=== PATIENT | male | born 1985 | race Caucasian/White ===

== ENCOUNTER 2019-10-14 19:20 | Emergency (ER) | payer OTHER, SELFPAY ==
[2019-10-14 19:59] VITALS: BP 135/87; PULSE 93; RESP 17; TEMP 36.8; O2SAT 98; BMI 37.9
[2019-10-14 20:44] VITALS: BP 119/78; PULSE 79; RESP 16; TEMP 36.9; O2SAT 98
--- NOTE | 2019-10-14 20:58 | W.ED.EYEPROB ---
HPI - Eye Problem General: Chief complaint: Eye Problems Stated complaint: left eye injury Time Seen by Provider: 10/14/19 20:30 History of Present Illness: HPI Narrative: Patient is a 33-year-old male who comes in with left eye pain. Patient had grease pop into his left. He is now complaining of vision in his left eye. He rinsed it while at home under cold water. Denies any drainage from his eye. He rates the eye discomfort about 3-4 out of 10. States his blurry vision has improved. Associated symptoms: Denies fever(s), headache(s), nausea, neck pain or vomiting Review of Systems Const: Denies: fever, chills or fatigue Eyes: Denies: change in vision or eye discomfort ENMT: Denies: throat pain, painful swallowing, nasal discharge or nasal congestion Card: Denies: chest pain, palpitations, edema, swelling of feet/ankles, shortness of breath on exertion or shortness of breath when lying down Resp: Denies: shortness of breath, productive cough or non-productive cough GI: Denies: abdominal pain, nausea, vomiting, diarrhea, constipation or blood in stool : Denies: flank pain, difficulty urinating, painful urination or blood in urine Musc: Denies: neck pain, back pain or extremity swelling Skin/Breast: Denies: rash or new lesion Neuro: Denies: headache, numbness in extremities or weakness in extremities PFSH ED PFSH: Social History Smoking and tobacco status: current every day smoker Physical Exam Const: COMMON NORMALS: oriented x3 HENMT: COMMON NORMALS: normocephalic HEAD & SCALP: normocephalic MOUTH: oral and palatal mucosa normal THROAT: posterior oropharynx normal and uvula midline Eye: COMMON NORMALS: PERRL and EOMs intact bilaterally EYELID: eyelids normal CONJUNCTIVA: Yes conjunctiva abnormal (mild redness on medial aspect of eye) positive left PUPIL: Yes PERRL SLIT LAMP EXAM: Yes slit lamp exam performed with fluorescein OTHER: Slit lamp exam was normal and showed no ulcerations. Neck/C-Spine: COMMON NORMALS: supple GENERAL: Yes normal visual inspection Resp: COMMON NORMALS: normal respiratory effort, no retractions, no use of accessory muscles and clear to auscultation bilaterally AUSCULTATION: clear to auscultation bilaterally Cardio: COMMON NORMALS: regular rate, regular rhythm, S1 normal heart sound, S2 normal heart sound, no gallops, no clicks, no murmurs and peripheral pulses 2+ throughout RATE: regular rate RHYTHM: regular rhythm HEART SOUNDS: S1 normal and S2 normal PERIPHERAL PULSES: pulses 2+ throughout GI: COMMON NORMALS: normal to inspection, nondistended, normoactive bowel sounds, soft to palpation, non-tender and no masses PALPATION: Yes soft : COMMON NORMALS: Yes no CVA tenderness BLADDER/KIDNEY EXAM: Yes no CVA tenderness Back/Pelvis: COMMON NORMALS: no CVA tenderness Neuro: COMMON NORMALS: oriented x3 and moves all extremities Course ED course: Stressed with the patient the importance of seeing an eye doctor within the next 24-48 hours. Told patient to call her doctor in the morning and set up an appointment. Patient agreed and understood plan. Vital Signs: Vital signs: Vital Signs Temperature 98.4 F 10/14/19 22:21 Pulse Rate 73 10/14/19 22:21 Respiratory Rate 18 10/14/19 22:21 Blood Pressure 121/81 10/14/19 22:21 Pulse Oximetry 97 10/14/19 22:21 Discharge Plan Discharge Patient Disposition: Home, Self-Care Clinical Impression: Superficial eye injury Qualifiers: Encounter type: initial encounter Laterality: left Qualified Code(s): S05.8X2A - Other injuries of left eye and orbit, initial encounter Condition: Stable Prescriptions: New erythromycin with ethanol 2 % solution 1 applic TOPICAL BID Qty: 60 RF: 0 No Action No Known Home Medications RF: 0 Discharge Orders: Discharge Order (Routine); Ordered 10/14/19 Ordered By: Jaime Ledesma Discharge Diet: Regular Discharge Activity: Resume usual activity Patient Instructions: Erythromycin (Into the eye), Eye Foreign Body (ED) Activity Restrictions/Additional Instructions: Eye doctor tomorrow morning to set up an appointment LILLI. Return to the ED if I does not get better and your unable to get into an eye doctor in the next 48 hours. He is in drops twice a day as prescribed. He can take ibuprofen or Tylenol for any pain. Discharge Date/Time: 10/14/19 22:22 Coding Level of Care Code ED Safety And Security Manager for Angely Fwlex Exam Comprehensive
[2019-10-14] MEDS: fluorescein 1 mg Strip EYE-LEFT (21:11)
[2019-10-14] MEDS: tetanus-dipt-pertussis 0.5 mL SDV IM (22:05)
[2019-10-14 22:21] VITALS: BP 121/81; PULSE 73; RESP 18; TEMP 36.9; O2SAT 97
== END 2019-10-14 22:22 | disposition home or self-care (01) ==
PROVIDERS: Emergency Provider Physician Assistant
DX: S05.92XA Unspecified injury of left eye and orbit, initial encounter (principal); X58.XXXA Exposure to other specified factors, initial encounter; F17.200 Nicotine dependence, unspecified, uncomplicated
CPT/HCPCS: 90471; 90715; 99281; 99283

== ENCOUNTER → 2019-12-28 11:36 | Outpatient (BNVA) | payer SELFPAY | PROVIDERS: Visit Provider Nurse Practitioner Family | DX: R05 Cough (principal) | CPT/HCPCS: 71046 ==

== ENCOUNTER 2020-01-09 21:29 | Emergency (ER) | payer SELFPAY ==
[2020-01-09 22:25] VITALS: BP 148/80; PULSE 95; RESP 18; TEMP 36.6; O2SAT 98; BMI 42.5
--- NOTE | 2020-01-10 00:14 | ED_ITS ---
HPI - General Adult General: Chief complaint: General Medical Stated complaint: hot flashes, fever, dizzy Time Seen by Provider: 01/10/20 00:14 Source: patient Mode of arrival: ambulatory Limitations: no limitations History of Present Illness: HPI narrative: 34-year-old male comes in today with fever, dizziness, nausea, and diarrhea. Patient was started on amoxicillin 3 days ago and has been having increasing difficulty with controlling bowel movements. Patient reports that he is also had some nausea and vomiting along with a headache. Patient was started on antibiotics 3 days ago for probable ear infection. Patient reports no chronic medical history. Patient appears mildly unwell. Associated symptoms: Reports headache(s), malaise, nausea and vomiting Review of Systems General: Reports: 10 or more systems reviewed and unremarkable except in HPI and below Const: Reports: malaise GI: Reports: nausea and vomiting Neuro: Reports: headache(s) PFS ED PFSH: Social History Smoking and tobacco status: current every day smoker Physical Exam Const: COMMON NORMALS: no acute distress and patient oriented x3 GENERAL APPEARANCE: cooperative HENMT: COMMON NORMALS: normocephalic, TM's normal bilaterally and Normal external nose present HEAD & SCALP: normal to inspection and normocephalic NOSE: Normal external nose present TYMPANIC MEMBRANE: TM's normal bilaterally MOUTH: Normal oral and palatal mucosa present THROAT: posterior oropharynx normal Eye: GENERAL EYE: appearance normal, both eyes and all related structures Neck/C-Spine: COMMON NORMALS: full ROM Lymph: LYMPHATIC: no lymphadenopathy noted Chest: COMMONS NORMALS: normal inspection of the chest Resp: COMMON NORMALS: normal respiratory effort EFFORT & INSPECTION: Yes able to speak in complete sentences Cardio: COMMON NORMALS: regular rate and regular rhythm RATE: regular rate RHYTHM: regular rhythm GI: COMMON NORMALS: non-tender : COMMON NORMALS: Yes no CVA tenderness BLADDER/KIDNEY EXAM: Yes no CVA tenderness Back/Pelvis: COMMON NORMALS: no CVA tenderness and thoracic and lumbar spine normal to inspection Extremity: COMMON NORMALS: normal to inspection Neuro: COMMON NORMALS: patient oriented x3 and moves all extremities Psych: COMMON NORMALS: mental status grossly normal and cooperative Skin: COMMON NORMALS: no rashes or lesions noted GENERAL SKIN EXAM: no rashes or lesions noted Course Vital Signs: Vital signs: Vital Signs Temperature 97.8 F 01/09/20 22:25 Pulse Rate 95 01/09/20 22:25 Respiratory Rate 18 01/09/20 22:25 Blood Pressure 148/80 01/09/20 22:25 Pulse Oximetry 98 01/09/20 22:25 MDM - General Adult MDM Narrative: Medical decision making narrative: Patient comes in today for complaints of nausea, vomiting, diarrhea, and dizziness. Patient reports that started with dizziness and nausea about 5 days ago. Patient was recommended to take meclizine twice a day until it resolved. Patient had continued complaints and was seen at urgent care who thought he probably had an ear infection and was started on amoxicillin 875. Patient reports since starting the amoxicillin he has had more nausea, vomiting, and diarrhea. Exam notes normal vital signs. Respirations are even lungs are clear to auscultation. Posterior pharynx has some mild clear drainage. Abdomen soft nontender. Patient has no focal neural deficits. Bowel sounds are present throughout. No edema is in the noted extremities. Differential diagnosis includes vestibular neuritis, sinusitis, brain mass or tumor, electrolyte imbalance, cardiac arrhythmia. EKG was normal. Laboratory values were normal except for some mild leukocytosis at 11.4. CT scan of the head was negative for any mass or intracranial bleeding or sinusitis. Reviewed exam with patient believe patient probably has some vestibular neuronitis which should resolve on its own with minimal intervention. Recommend the patient stop the amoxicillin as this may be causing his gastrointestinal discomfort. Recommend patient take dimenhydrinate as is shown to be more effective than other medications and assisting with the dizziness that goes along with labyrinthritis. Patient reports understanding and agreed to plan. Lab Data: Labs: Lab Results 01/10/20 01/10/20 Range/Units 00:50 00:50 WBC 11.4 H (4.0-10.0) 10^3/ uL RBC 5.58 H (4.1-5.3) 10^6/u L Hgb 16.2 (11.7-16.6) g/dL Hct 49.3 (42.0-52.0) % MCV 88.4 (80-94) fL MCH 29.0 (28.0-34.0) pg MCHC 32.9 (30.0-36.0) g/dL RDW 13.7 (12.1-15.1) % Plt Count 320 (130-400) 10^3/c mm MPV 8.8 (7.4-10.4) fL Neut % (Auto) 43.7 % Lymph % (Auto) 43.5 % Christian % (Auto) 6.5 % Eos % (Auto) 5.4 % Baso % (Auto) 0.5 % Neut # (Auto) 5.0 (1.8-7.7) 10^3/u L Lymph # (Auto) 5.0 H (0.8-4.8) 10^3/u L Christian # (Auto) 0.7 (0.2-0.9) 10^3/u L Eos # (Auto) 0.6 (0.0-0.8) 10^3/u L Baso # (Auto) 0.1 (0.0-0.1) 10^3/u L Nucleated RBC % (a uto) 0 % Nucleated RBCs # 0.0 /100WBC Sodium 137 (136-145) mmol/L Potassium 4.0 (3.5-5.1) mmol/L Chloride 101 (98-107) mmol/L Carbon Dioxide 24 (22-29) mmol/L Anion Gap 16.0 (5-19) BUN 13 (6-20) mg/dL Creatinine 0.8 (0.7-1.2) mg/dL GFR Calculation 110.0 (90-130) mL/min Glucose 107 (65-115) mg/dL Calculated Osmolal ity 281 L (285-295) mOsm/k g Calcium 9.2 (8.5-10.5) mg/dL Total Bilirubin 0.3 (0.15-1.2) mg/dL AST 30 (0-40) U/L ALT 28 (0-41) U/L Alkaline Phosphata se 74 (40-130) IU/L Total Protein 7.0 (6.6-8.7) g/dL Albumin 4.4 (3.5-5.2) g/dL Globulin 2.6 (1.3-4.6) g/dL Lipase 22 (13-60) U/L EKG Data^: EKG 1: Attestation: I personally reviewed and interpreted this EKG as follows: (0059, sinus rhythm, regular 68 bpm, no ectopy, no ST elevation.) Computer generated interpretation: Head CT 01/10/20 00:23 IMPRESSION: 1. No acute intracranial hemorrhage or mass effect. 2. No definite acute infarct by CT, see above. 3. Other findings discussed above. Radiation Dose CTDIVOL = (mGy): DLP = 852.67 (mGy-cm) Discharge Plan Discharge Patient Disposition: Home, Self-Care Clinical Impression: Vestibular dizziness Condition: Stable Prescriptions: New dimenhydrinate 50 mg tablet 50 mg PO Q4H PRN (Reason: dizziness or vertigo) Qty: 30 RF: 0 No Action meclizine [Medi-Meclizine] 25 mg tablet 25 mg PO BID PRN (Reason: dizziness) RF: 0 amoxicillin 875 mg tablet 875 mg PO BID 10 Days Qty: 20 RF: 0 ondansetron 4 mg tablet,disintegrating 4 mg PO Q8H PRN (Reason: nausea and vomiting) Qty: 14 RF: 0 amoxicillin 875 mg tablet 875 mg PO BID RF: 0 Discharge Orders: Discharge Order (Routine); Ordered 01/10/20 Ordered By: Henry Rhodes Discharge Diet: Usual diet Discharge Activity: Increase activity as tolerated Patient Instructions: Dizziness (ED) Activity Restrictions/Additional Instructions: Stop the antibiotic and meclizine. Drink plenty of water. Take dimenhydrinate 50 mg every 4-6 hours as needed for dizziness or nausea. You may use the ondansetron as needed for nausea. The dizziness will continue to improve over the next 1 to 2 weeks. If symptoms persist follow-up with primary care who may recommend you see a high school learning support teacher. Return to the ER for high fever or worsening symptoms. Coding Level of Care Code ED Electrical Maintenance Technician for Angely Fwd Exam Comprehensive
--- NOTE | 2020-01-10 00:23 | CTR_ITS ---
PROCEDURE INFORMATION: Exam: CT Head Without Contrast Exam date and time: 01/10/2020 12:25 AM Age: 34 years old Clinical indication: Pain; Dizziness; Headache; Additional info: Dizziness, headache TECHNIQUE: Imaging protocol: Computed tomography of the head without contrast. Radiation optimization: All CT scans at this facility use at least one of these dose optimization techniques: automated exposure control; mA and/or kV adjustment per patient size (includes targeted exams where dose is matched to clinical indication); or iterative reconstruction. COMPARISON: No relevant prior studies available. RADIATION DOSE METRICS: Total DLP: 852.67 mGy-cm FINDINGS: Brain: No acute intracranial hemorrhage or mass effect. No definite acute infarct by CT. MRI could be more sensitive/specific for detection, as clinically directed. Ventricles: Ventricle size is normal for age. Bones/joints: No definite acute skull fracture. Sinuses: Included paranasal sinuses are essentially clear. Mastoid air cells: No significant acute finding. CT/CT head wo con* [id number] IMPRESSION: 1. No acute intracranial hemorrhage or mass effect. 2. No definite acute infarct by CT, see above. 3. Other findings discussed above. Radiation Dose CTDIVOL = (mGy): DLP = 852.67 (mGy-cm)
--- NOTE | 2020-01-10 00:23 | ECG_ITS ---
Measurements Intervals [place] Rate: 68 P: 45 MI: 167 QRS: 24 QRSD: 107 T: 20 QT: 370 QTc: 394 SINUS RHYTHM No previous ECG available for comparison Electronically Signed On 01-10-2020 13:05:08 CDT by Marcos Elizondo M.D. [id number]
[2020-01-10 00:35] VITALS: BP 138/74; PULSE 88; RESP 16; O2SAT 98
[2020-01-10 01:00] LABS: Basophils # 0.1 10^3/uL (0.0-0.1); Basophils % 0.5 %; Eosinophils # 0.6 10^3/uL (0.0-0.8); Eosinophils % 5.4 %; Hematocrit 49.3 % (42.0-52.0); Hemoglobin 16.2 g/dL (11.7-16.6); Lymphocytes % 43.5 %; Mean Corpuscular HGB Conc 32.9 g/dL (30.0-36.0); Mean Corpuscular Volume 88.4 fL (80-94); Mean Platelet Volume 8.8 fL (7.4-10.4); Monocytes # 0.7 10^3/uL (0.2-0.9); Monocytes % 6.5 %; Neutrophils % 43.7 %; Nucleated Red Blood Cells % 0 %; Platelet Count 320 10^3/cmm (130-400); Red Blood Count 5.58 10^6/uL (4.1-5.3); Red Cell Distribution Width 13.7 % (12.1-15.1); White Blood Count 11.4 10^3/uL (4.0-10.0)
[2020-01-10] MEDS: metoclopramide 5 mg/mL SDV 2 mL 10 MG IVP (01:03)
[2020-01-10] MEDS: sodium chloride 0.9% 500 ML 999 ML IV (01:03)
[2020-01-10 01:18] LABS: Alanine Aminotransferase 28 U/L (0-41); Albumin Level 4.4 g/dL (3.5-5.2); Alkaline Phosphatase 74 IU/L (40-130); Blood Urea Nitrogen 13 mg/dL (6-20); Calcium 9.2 mg/dL (8.5-10.5); Carbon Dioxide 24 mmol/L (22-29); Chloride 101 mmol/L (98-107); Globulin 2.6 g/dL (1.3-4.6); Glucose 107 mg/dL (65-115); Lipase 22 U/L (13-60); Osmolality Calculated 281 mOsm/kg (285-295); Sodium 137 mmol/L (136-145); Total Bilirubin 0.3 mg/dL (0.15-1.2)
[2020-01-10 01:19] LABS: Aspartate Amino Transferase 30 U/L (0-40)
[2020-01-10] MEDS: diphenoxylate/atropine Tablet 1 TAB PO (02:16)
== END 2020-01-10 02:30 | disposition home or self-care (01) ==
PROVIDERS: Emergency Provider Nurse Practitioner Family
DX: R42 Dizziness and giddiness (principal); F17.210 Nicotine dependence, cigarettes, uncomplicated
CPT/HCPCS: 12345; 70450; 80053; 83690; 85025; 93005; 96374; 99283; J2765; J7040

== ENCOUNTER → 2020-02-22 13:33 | Outpatient (BNVA) | payer SELFPAY | PROVIDERS: Visit Provider Nurse Practitioner | DX: K52.9 Noninfective gastroenteritis and colitis, unspecified (principal); R11.2 Nausea with vomiting, unspecified | CPT/HCPCS: 81000 ==

== ENCOUNTER 2020-02-25 08:25 | Emergency (ER) | payer SELFPAY ==
[2020-02-25] VITALS (7 sets, daily range): BP systolic 130–144; BP diastolic 80–94; PULSE 75–98; RESP 16–18; TEMP 36.8; O2SAT 95–99; BMI 40.4
--- NOTE | 2020-02-25 08:35 | ECG_ITS ---
[facility] Test Date: 2020-02-25 Pat Name: Henry Arteaga Department: Room: Gender: Male Topographical Surveyor: : 1985 Requested By: Jj Gonzalez Order Number: [id number] Trinidad MD: Erika Umaña M.D. Measurements Intervals [place] Rate: 85 P: 55 TN: 154 QRS: 32 QRSD: 98 T: 22 QT: 357 QTc: 425 Interpretive Statements SINUS RHYTHM Compared to ECG 01/10/2020 00:59:16 No significant changes Electronically Signed On 02-25-2020 19:32:46 CDT by Erika Umaña M.D. [id number]
--- NOTE | 2020-02-25 08:35 | XRR_ITS ---
PROCEDURE INFORMATION: Exam: XR Chest, 1 View Exam date and time: 02/25/2020 8:51 AM Age: 34 years old Clinical indication: Cough and dyspnea; Patient HX: Chest pain, blacked out earlier; Additional info: Dyspnea/cough TECHNIQUE: Imaging protocol: XR of the chest Views: 1 view. COMPARISON: CR XR chest 2V* [id number] 12/28/2019 11:52 AM FINDINGS: Lungs: Unremarkable. No consolidation. Pleural space: Unremarkable. No pleural effusion. No pneumothorax. Heart/Mediastinum: Unremarkable. No cardiomegaly. Bones/joints: There is a mild thoracic dextroscoliosis. XR/XR chest 1V portable [id number] IMPRESSION: No acute findings.
--- NOTE | 2020-02-25 08:35 | ED_ITS ---
HPI - Syncope General: Chief Complaint: Syncope Stated Complaint: SYNCOPAL EPISODE Time Seen by Provider: 02/25/20 08:26 History of Present Illness: HPI narrative: 34-year-old male presents after syncopal episode while at work. He had some nausea and vomiting kind of a GI upset thing 2 days ago he was seen at the urgent care clinic and started on antiemetic promethazine. 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 Occurred while he was standing he denies any GI blood loss with any the nausea vomiting he has had recently. When he arrived here he had been given some fluid by EMS he was awake and alert. MD complaint: loss of consciousness, felt faint and collapsed Prodromal symptoms: lightheaded and diaphoresis Witnessed: Yes - by Bystander Context: standing up and new medication (Promethazine) Injuries sustained associated with event: none Associated symptoms: Reports lightheadedness, nausea, vertigo and weakness; Deny fever(s) History: other (Recent gastroenteritis treatment with promethazine) Treatments prior to arrival: IV fluids Review of Systems Const: Denies: fever(s), chills, body aches, change in appetite, fatigue or malaise ENMT: Denies: throat pain, ear or mastoid pain, nasal discharge or nasal congestion Card: Reports: lightheadedness Resp: Denies: dyspnea, productive cough or non-productive cough GI: Reports: nausea : Denies: flank pain, dysuria, urinary frequency or urinary urgency Skin/Breast: Denies: rash or pruritus Neuro: Reports: vertigo PFSH ED PFSH: Medical History (Updated 02/25/20 @ 11:38 by Jj Wheatley DO) No significant past medical history Surgical History (Updated 02/25/20 @ 11:38 by Jj Wheatley DO) No significant past surgical history Social History Smoking and tobacco status: current every day smoker Physical Exam Const: COMMON NORMALS: no acute distress GENERAL APPEARANCE: cooperative and comfortable ORIENTATION/CONSCIOUSNESS: Yes awake, Yes oriented to person, Yes oriented to place and Yes oriented to time HENMT: COMMON NORMALS: normocephalic, atraumatic, hearing grossly normal bilaterally, external ears normal, EAC's normal, TM's normal bilaterally, Normal nasal mucous membranes and turbinates present, moist oral mucous membranes and oropharynx normal HEAD & SCALP: normocephalic and atraumatic NOSE: Normal nasal mucous membranes and turbinates present EXTERNAL EAR: Yes external ears normal EXTERNAL AUDITORY CANAL: EAC's normal TYMPANIC MEMBRANE: TM's normal bilaterally Eye: COMMON NORMALS: Equal, round and reactive pupils present, EOMs intact bilaterally, conjunctivae normal and no scleral icterus CONJUNCTIVA: Yes conjunctivae normal PUPIL: Yes Equal, round and reactive pupils present Neck/C-Spine: COMMON NORMALS: full ROM, no lymphadenopathy, supple and no JVD Lymph: LYMPHATIC: no lymphadenopathy noted and no lymphedema noted Resp: COMMON NORMALS: normal respiratory effort, No retractions, No use of accessory muscles and clear to auscultation bilaterally AUSCULTATION: clear to auscultation bilaterally Cardio: COMMON NORMALS: no JVD, regular rate, regular rhythm and No murmurs present (Cardio) RATE: regular rate RHYTHM: regular rhythm GI: COMMON NORMALS: Soft to palpation and No hepatosplenomegaly present AUSCULTATION: Yes normoactive bowel sounds PALPATION: Yes Soft to palpation, No Tenderness to palpation present (GI), No Guarding due to palpation present (GI) and Yes No hepatosplenomegaly present Extremity: COMMON NORMALS: normal to inspection, capillary refill normal, no clubbing, cyanosis or edema, no calf tenderness and no pedal edema Neuro: SENSORIUM/ORIENTATION: Yes oriented to person, Yes oriented to place and Yes oriented to time Skin: COMMON NORMALS: no rashes or lesions noted GENERAL SKIN EXAM: no rashes or lesions noted Course Vital Signs: Vital signs: Vital Signs Temperature 98.3 F 02/25/20 08:26 Pulse Rate 78 02/25/20 10:35 Respiratory Rate 18 02/25/20 10:35 Blood Pressure 134/88 02/25/20 10:35 Pulse Oximetry 97 02/25/20 10:35 MDM - Syncope MDM Narrative: Medical decision making narrative: Improved after IV fluids. Discharge home wrote note for 2 days off recheck with his primary care doctor any worsening or change symptoms return. Lab Data: Attestation: I reviewed the patient's lab results. Labs: Lab Results 02/25/20 02/25/20 02/25/20 Range/Units 08:15 08:15 09:18 WBC 11.3 H (4.0-10.0) 10^3/ uL RBC 5.68 H (4.1-5.3) 10^6/u L Hgb 16.7 H (11.7-16.6) g/dL Hct 50.3 (42.0-52.0) % MCV 88.6 (80-94) fL MCH 29.4 (28.0-34.0) pg MCHC 33.2 (30.0-36.0) g/dL RDW 13.4 (12.1-15.1) % Plt Count 342 (130-400) 10^3/c mm MPV 9.3 (7.4-10.4) fL Neut % (Auto) 59.6 % Lymph % (Auto) 30.8 % Valencia % (Auto) 4.5 % Eos % (Auto) 4.3 % Baso % (Auto) 0.4 % Neut # (Auto) 6.7 (1.8-7.7) 10^3/u L Lymph # (Auto) 3.5 (0.8-4.8) 10^3/u L Valencia # (Auto) 0.5 (0.2-0.9) 10^3/u L Eos # (Auto) 0.5 (0.0-0.8) 10^3/u L Baso # (Auto) 0.0 (0.0-0.1) 10^3/u L Nucleated RBC % (a uto) 0 % Nucleated RBCs # 0.0 /100WBC Sodium 139 (136-145) mmol/L Potassium 4.0 (3.5-5.1) mmol/L Chloride 101 (98-107) mmol/L Carbon Dioxide 26 (22-29) mmol/L Anion Gap 16.0 (5-19) BUN 10 (6-20) mg/dL Creatinine 0.8 (0.7-1.2) mg/dL GFR Calculation 110.0 (90-130) mL/min Glucose 109 (65-115) mg/dL Calculated Osmolal ity 285 (285-295) mOsm/k g Calcium 9.6 (8.5-10.5) mg/dL Total Bilirubin 0.4 (0.15-1.2) mg/dL AST 27 (0-40) U/L ALT 32 (0-41) U/L Alkaline Phosphata se 73 (40-130) IU/L Creatine Kinase 139 (39-308) U/L Total Protein 7.1 (6.6-8.7) g/dL Albumin 4.3 (3.5-5.2) g/dL Globulin 2.8 (1.3-4.6) g/dL Lipase 22 (13-60) U/L Urine Color (Yellow) Urine Appearance (CLEAR) Urine pH (5-7) Ur Specific Gravit y (1.005-1.030) Urine Protein (Negative) Urine Glucose (UA) (Normal) Urine Ketones (Negative) Urine Blood (Negative) Urine Nitrate (Negative) Urine Bilirubin (NEGATIVE) Prot Sulfosalicyli c Acd (Negative) Urine Urobilinogen (Negative) mg/dL Ur Leukocyte Debbi ase (Negative) Serum Ketones Negative (Negative) 02/25/20 Range/Units 09:35 WBC (4.0-10.0) 10^3/ uL RBC (4.1-5.3) 10^6/u L Hgb (11.7-16.6) g/dL Hct (42.0-52.0) % MCV (80-94) fL MCH (28.0-34.0) pg MCHC (30.0-36.0) g/dL RDW (12.1-15.1) % Plt Count (130-400) 10^3/c mm MPV (7.4-10.4) fL Neut % (Auto) % Lymph % (Auto) % Valencia % (Auto) % Eos % (Auto) % Baso % (Auto) % Neut # (Auto) (1.8-7.7) 10^3/u L Lymph # (Auto) (0.8-4.8) 10^3/u L Valencia # (Auto) (0.2-0.9) 10^3/u L Eos # (Auto) (0.0-0.8) 10^3/u L Baso # (Auto) (0.0-0.1) 10^3/u L Nucleated RBC % (a uto) % Nucleated RBCs # /100WBC Sodium (136-145) mmol/L Potassium (3.5-5.1) mmol/L Chloride (98-107) mmol/L Carbon Dioxide (22-29) mmol/L Anion Gap (5-19) BUN (6-20) mg/dL Creatinine (0.7-1.2) mg/dL GFR Calculation (90-130) mL/min Glucose (65-115) mg/dL Calculated Osmolal ity (285-295) mOsm/k g Calcium (8.5-10.5) mg/dL Total Bilirubin (0.15-1.2) mg/dL AST (0-40) U/L ALT (0-41) U/L Alkaline Phosphata se (40-130) IU/L Creatine Kinase (39-308) U/L Total Protein (6.6-8.7) g/dL Albumin (3.5-5.2) g/dL Globulin (1.3-4.6) g/dL Lipase (13-60) U/L Urine Color Yellow (Yellow) Urine Appearance Clear (CLEAR) Urine pH 8.5 H (5-7) Ur Specific Gravit y 1.015 (1.005-1.030) Urine Protein Neg (Negative) Urine Glucose (UA) Norm (Normal) Urine Ketones Negative (Negative) Urine Blood Neg (Negative) Urine Nitrate Negative (Negative) Urine Bilirubin Neg (NEGATIVE) Prot Sulfosalicyli c Acd Negative (Negative) Urine Urobilinogen Norm (Negative) mg/dL Ur Leukocyte Debbi ase Negative (Negative) Serum Ketones (Negative) Discharge Plan Discharge Patient Disposition: Home, Self-Care Clinical Impression: Syncope due to orthostatic hypotension Condition: Stable Prescriptions: No Action promethazine 12.5 mg tablet 12.5 mg PO TID PRN (Reason: nausea and vomiting) Qty: 20 RF: 0 Tylenol Extra Strength 500 mg Tablet 3,000 mg PO PRN RF: 0 ibuprofen 200 mg Tablet 800 mg PO PRN RF: 0 Excedrin Migraine 250-250-65 mg Tablet See Rx Instructions .ROUTE .COMPLEX RF: 0 Discharge Diet: Advance as tolerated Discharge Activity: Limit activity as instructed Patient Instructions: Syncope (ED) Activity Restrictions/Additional Instructions: Off work today drink plenty of fluids Stand Alone Forms: Work/School Release Coding Level of Care Code ED Community Relations Officer for Angely Sheffield
[2020-02-25] MEDS: sodium chloride 0.9% 1,000 ML 999 ML IV ×2 (09:03→10:42)
[2020-02-25 09:16] LABS: Basophils % 0.4 %; Eosinophils # 0.5 10^3/uL (0.0-0.8); Eosinophils % 4.3 %; Hematocrit 50.3 % (42.0-52.0); Hemoglobin 16.7 g/dL (11.7-16.6); Lymphocytes # 3.5 10^3/uL (0.8-4.8); Lymphocytes % 30.8 %; Mean Corpuscular HGB Conc 33.2 g/dL (30.0-36.0); Mean Corpuscular Hemoglobin 29.4 pg (28.0-34.0); Mean Corpuscular Volume 88.6 fL (80-94); Mean Platelet Volume 9.3 fL (7.4-10.4); Monocytes # 0.5 10^3/uL (0.2-0.9); Monocytes % 4.5 %; Neutrophils # 6.7 10^3/uL (1.8-7.7); Neutrophils % 59.6 %; Nucleated Red Blood Cells % 0 %; Platelet Count 342 10^3/cmm (130-400); Red Blood Count 5.68 10^6/uL (4.1-5.3); Red Cell Distribution Width 13.4 % (12.1-15.1); White Blood Count 11.3 10^3/uL (4.0-10.0)
[2020-02-25 09:22] LABS: Ketone (Acetest) Serum Negative (Negative)
[2020-02-25 10:00] LABS: Alanine Aminotransferase 32 U/L (0-41); Albumin Level 4.3 g/dL (3.5-5.2); Alkaline Phosphatase 73 IU/L (40-130); Aspartate Amino Transferase 27 U/L (0-40); Blood Urea Nitrogen 10 mg/dL (6-20); Calcium 9.6 mg/dL (8.5-10.5); Carbon Dioxide 26 mmol/L (22-29); Chloride 101 mmol/L (98-107); Creatine Phosphokinase 139 U/L (39-308); Globulin 2.8 g/dL (1.3-4.6); Glucose 109 mg/dL (65-115); Lipase 22 U/L (13-60); Osmolality Calculated 285 mOsm/kg (285-295); Sodium 139 mmol/L (136-145); Total Bilirubin 0.4 mg/dL (0.15-1.2); Total Protein 7.1 g/dL (6.6-8.7)
[2020-02-25 10:38] LABS: Add Urine Microscopic? NO
[2020-02-25 10:56] LABS: Bilirubin Urine Neg (NEGATIVE); Blood Urine Neg (Negative); Glucose Urine UA Norm (Normal); Ketones Urine Negative (Negative); Leukocyte Esterase Urine Negative (Negative); Nitrate Urine Negative (Negative); Protein Urine Neg (Negative); Specific Gravity, Urine 1.015 (1.005-1.030); Sulfosalicylic Acid Urine Negative (Negative); Urine Appearance Clear (CLEAR); Urine Color Yellow (Yellow); Urobilinogen Urine Norm (Negative); pH Urine 8.5 (5-7)
== END 2020-02-25 11:53 | disposition home or self-care (01) ==
PROVIDERS: Emergency Provider Family Medicine
DX: I95.1 Orthostatic hypotension (principal); F17.210 Nicotine dependence, cigarettes, uncomplicated
CPT/HCPCS: 12345; 36415; 71045; 80053; 81003; 82009; 82550; 83690; 85025; 93005; 96360; 96361; 99284; J7030

== ENCOUNTER → 2020-03-13 11:16 | Outpatient (BNVA) | payer SELFPAY | PROVIDERS: Visit Provider Family Medicine | DX: K52.9 Noninfective gastroenteritis and colitis, unspecified (principal) | CPT/HCPCS: 87177; 87209; 87493; 87506 ==

== ENCOUNTER 2020-03-24 09:22 | Day surgery (SDC) | payer SELFPAY ==
[2020-03-23 07:58] VITALS: BMI 43.9
--- NOTE | 2020-03-24 10:03 | ANES.PREANE2 ---
Pre-Anesthetic Assessment Pre-Anesthetic Assessment: Height/Weight: Height 1.6 m Weight 112.491 kg Preop Diagnosis: gerd/ gi bleed Proposed Procedure: Operation Date: 03/24/20 11:00 Proposed Procedures p EGD/colon with poss biopsy [id number] R10.13 K52.9(Not Applicable) - Miles Lind MD s Colonoscopy with poss biopsy poss polypectomy(Not Applicable) - Miles Lind MD Familial anesthetic complications: None Last intake: NPO > 8 hrs Social: Social History: Tobacco and No alcohol Exam: Pre-Anes Outpt Exam: alert, oriented x 3, clear to auscultation bilaterally and regular rate & rhythm Airway: Cervical ROM: WNL MP: 3 Dentition: Chipped Pulmonary: Pulmonary: Asthma CV/HEM: CV/HEM: Murmur Comments: PVCs : : None reported Hepatic: Hepatic: None reported GI: GI: GERD Metabolic: Metabolic: None reported Musc/skel: Musc/skel: None reported Neuropsych: Neuropsych: None reported Anesthetic Plan: ASA status: 1 Anesthesia: MAC PFSH Anesthesia PFSH: Medical History Chronic low back pain Chronic migraine Surgical History H/O circumcision Family History Mother Cancer lung Father Cancer lung, colon Other CAD (coronary artery disease) Chronic kidney disease (CKD) Diabetes Denies family history of Anesthesia complication Bleeding disorder Social History Smoking and tobacco status: current every day smoker cigarettes Packs smoked per day: 0.75 Alcohol intake: never Lives independently: Yes Household members: spouse Marital status: Single Current occupational status: employed History of recent travel: Yes ([place]) Out of state: No Data Anesthesia Cardiac Studies: No Data to Display
[2020-03-24] MEDS: sodium chloride 0.9% 1,000 ML 30 ML IV (10:18)
--- NOTE | 2020-03-24 11:16 | W.PM.OPSUD ---
Surgery/Procedure H&P Update DATE OF PROCEDURE: March 24, 2020 DATE H&P PERFORMED: 03/17/20 H&P UPDATE INFORMATION: I have reviewed H&P completed within last 30 days, I have examined patient prior to procedure and No changes to prior documentation PREOP DIAGNOSIS: gerd/ gi bleed PLANNED PROCEDURE: Operation Date: 03/24/20 11:00 Proposed Procedures p EGD/colon with poss biopsy [id number] R10.13 K52.9(Not Applicable) - Miles Lind MD s Colonoscopy with poss biopsy poss polypectomy(Not Applicable) - Miles Lind MD
[2020-03-24 11:42] VITALS: BP 113/67; PULSE 68; RESP 16; TEMP 36.2; O2SAT 98
[2020-03-24 11:54] VITALS: BP 126/63; PULSE 60; RESP 18; O2SAT 99
== END 2020-03-24 12:16 | disposition home or self-care (01) ==
PROVIDERS: PCP Family Medicine; Visit Provider Surgery
PROC: 0DJ08ZZ Inspection of Upper Intestinal Tract, Via Natural or Artificial Opening Endoscopic (ICD-10-PCS; CPT 43235; principal; 2020-03-24 11:00)
PROC: 0DJD8ZZ Inspection of Lower Intestinal Tract, Via Natural or Artificial Opening Endoscopic (ICD-10-PCS; CPT 45378; 2020-03-24 11:00)
DX: K21.9 Gastro-esophageal reflux disease without esophagitis (principal); K52.9 Noninfective gastroenteritis and colitis, unspecified; K57.30 Diverticulosis of large intestine without perforation or abscess without bleeding; K64.8 Other hemorrhoids; J45.909 Unspecified asthma, uncomplicated; F17.210 Nicotine dependence, cigarettes, uncomplicated
CPT/HCPCS: 12345; 43239; 45378; 82274; 83630; 87493; 87506; 88305; J2704; J7030

== ENCOUNTER 2020-04-20 09:33 | Outpatient (CLI) | payer SELFPAY ==
--- NOTE | 2020-04-20 11:00 | US_ITS ---
WS: [id number] ULTRASOUND ABDOMEN LIMITED CLINICAL INFORMATION: chronic abdominal pain COMPARISON: None. FINDINGS: Technically difficult examination due to body habitus. Liver Size: Mild hepatomegaly Craniocaudal length: 16.8 cm. Echogenicity: Coarse Surface nodularity: None. Mass (size and location): None. Bile ducts Intrahepatic ducts: Normal. Common bile duct diameter: 0.4 cm. Gallbladder Normal. Gallstones: None. Gallbladder sludge: None. Gallbladder wall thickening: None. Pericholecystic fluid: None. Sonographic Campa sign: Absent. Pancreas Normal as visualized. Right kidney: Normal. Hydronephrosis: None. Size: 11.7 cm x 4.4 cm x 5.1 cm. Abdominal aorta and IVC Visualized portions are normal. Ascites: None. US/US gall bladder [id number] IMPRESSION: 1. Technically difficult examination due to body habitus. 2. Mild hepatomegaly with diffuse fatty infiltration. 3. Gallbladder is normal. 4. No hydronephrosis in right kidney.
== END 2020-04-20 09:34 | disposition home or self-care (01) ==
LOC: US 09:34
PROVIDERS: PCP Family Medicine; Visit Provider Surgery
DX: R10.9 Unspecified abdominal pain (principal); G89.29 Other chronic pain; R16.0 Hepatomegaly, not elsewhere classified; K76.0 Fatty (change of) liver, not elsewhere classified
CPT/HCPCS: 76705

== ENCOUNTER 2020-05-01 07:34 | Outpatient (CLI) | payer SELFPAY ==
--- NOTE | 2020-05-01 08:00 | NM_ITS ---
WS: [id number] NUCLEAR MEDICINE HIDA SCAN WITH GALLBLADDER EJECTION FRACTION HISTORY: right upper quadrant pain COMPARISON: Gallbladder ultrasound 04/20/2020 TECHNIQUE: The patient was intravenously injected with 8.0 mCi of TC99m Mebrofenin. Immediate imaging over the right upper quadrant was followed by 5 minute image and additional images for a total of 60 minutes. Normal uptake of radiotracer throughout the liver. Activity identified in the gallbladder at 15 minutes and well distended by 60 minutes. Activity in the proximal small bowel was seen by 30 minutes. Good washout of the radiotracer from the liver by 60 minutes. The patient then drank 8 ounces of Ensure Plus. Ejection fraction at 60 minutes was 85%. Normal GB ej ection fraction is 35-75%. Post fatty meal symptoms: None. NM/NM hepatobiliary w phar* [id number] IMPRESSION: 1. Normal HIDA scan. 2. Normal gallbladder ejection fraction.
== END 2020-05-01 07:35 | disposition home or self-care (01) ==
LOC: NM 07:34
PROVIDERS: PCP Family Medicine; Visit Provider Surgery
DX: R10.11 Right upper quadrant pain (principal)
CPT/HCPCS: 78227; A9537

== ENCOUNTER → 2020-05-08 09:46 | Outpatient (BNVA) | payer OTHER, SELFPAY | PROVIDERS: PCP Family Medicine; Visit Provider Internal Medicine | DX: Z11.59 Encounter for screening for other viral diseases (principal) | CPT/HCPCS: 87635 ==

== ENCOUNTER 2020-05-11 08:12 | Outpatient (CLI) | payer SELFPAY ==
--- NOTE | 2020-05-11 14:21 | PFTS_ITS ---
Date of Study:05/11/20 Date of Dictation: MECHANICS: Forced vital capacity (FVC) is normal. Forced expiratory volume in one second (FEV1) is normal. FEV1/FVC is normal. FLOW VOLUME LOOP: Normal. LUNG VOLUMES: Not measured DIFFUSING CAPACITY FOR CARBON MONOXIDE: Not measured INTERPRETATION: The pre-and postbronchodilator spirometry are both normal. However, there is a significant postbronchodilator response consistent with asthma. MTDD
--- NOTE | 2020-05-11 14:56 | PFTS_ITS ---
Date of Study:05/11/20 Date of Dictation: MECHANICS: Forced vital capacity (FVC) is normal. Forced expiratory volume in one second (FEV1) is normal. FEV1/FVC is normal. FLOW VOLUME LOOP: Normal. LUNG VOLUMES: Not measured DIFFUSING CAPACITY FOR CARBON MONOXIDE: Not measured INTERPRETATION: The prebronchodilator spirometry is normal. However, the postbronchodilator spirometry showed a significant postbronchodilator response. Lung volumes and gas exchange were not measured. MTDD
== END 2020-05-11 08:13 | disposition home or self-care (01) ==
LOC: RT 08:13
PROVIDERS: PCP Family Medicine; Visit Provider Family Medicine
DX: R06.2 Wheezing (principal); K82.9 Disease of gallbladder, unspecified
CPT/HCPCS: 87635; 94060; J7611

== ENCOUNTER 2020-05-13 08:05 | Day surgery (SDC) | payer SELFPAY ==
[2020-05-12 12:46] VITALS: BMI 43.7
[2020-05-13] VITALS (10 sets, daily range): BP systolic 122–145; BP diastolic 66–106; PULSE 53–83; RESP 14–20; TEMP 36.2–37.3; O2SAT 94–97
--- NOTE | 2020-05-13 08:52 | W.PM.OPSUD ---
Surgery/Procedure H&P Update DATE OF PROCEDURE: May 13, 2020 DATE H&P PERFORMED: 05/05/20 H&P UPDATE INFORMATION: I have reviewed H&P completed within last 30 days, I have examined patient prior to procedure and No changes to prior documentation PREOP DIAGNOSIS: Chronic cholecystitis PLANNED PROCEDURE: Operation Date: 05/13/20 09:55 Proposed Procedures p Laparoscopic Cholecystectomy 34436 K82.9(Not Applicable) - Miles Lind MD
[2020-05-13] MEDS: sodium chloride 0.9% 1,000 ML 30 ML IV (08:55)
--- NOTE | 2020-05-13 09:14 | ANES.PREANE2 ---
Pre-Anesthetic Assessment Pre-Anesthetic Assessment: Height/Weight: Height 1.6 m Weight 112.037 kg Temp Pulse Resp BP Pulse Ox 98.5 F 83 18 145/95 97 05/13/20 08:34 05/13/20 08:34 05/13/20 08:34 05/13/20 08:34 05/13/20 08:34 Preop Diagnosis: Chronic cholecystitis Proposed Procedure: Operation Date: 05/13/20 09:55 Proposed Procedures p Laparoscopic Cholecystectomy 78240 K82.9(Not Applicable) - Miles Lind MD Familial anesthetic complications: None Was Beta Ishmael taken within 24 hours: N/A Last intake: Intake Last Liquid Date 05/12/20 Last Liquid Time 21:00 Last Solid Date 05/12/20 Last Solid Time 21:00 Social: Social History: Tobacco Exam: Pre-Anes Outpt Exam: alert, oriented x 3, clear to auscultation bilaterally and regular rate & rhythm Airway: Cervical ROM: WNL MP: 3 Dentition: Full Pulmonary: Pulmonary: Asthma (? prescribed inhaler during allergy season) GI: GI: GERD Metabolic: Metabolic: Morbid obesity Anesthetic Plan: ASA status: 2 Anesthesia: General Risk of > 500 ml blood loss (7ml/kg in children): No Meds/Allergies Current Medications: Current Medications Generic Name Dose Route Start Last Admin Trade Name Freq PRN Reason Stop Dose Admin Sodium Chloride 1,000 mls @ 30 ml s/hr 05/13/20 08:30 05/13/20 08:55 Sodium Chloride 0.9% IV 05/14/20 08:29 30 mls/hr .Q24H PRIYANKA Administration PFSH Anesthesia PFSH: Medical History Chronic low back pain Chronic migraine Surgical History H/O circumcision Family History Mother Cancer lung Father Cancer lung, colon Family/Other Cancer cousin, thyroid cancer Other CAD (coronary artery disease) Chronic kidney disease (CKD) Diabetes Denies family history of Anesthesia complication Bleeding disorder Social History Smoking and tobacco status: current every day smoker cigarettes Packs smoked per day: 0.75 Alcohol intake: never Lives independently: Yes Household members: spouse Marital status: Single Current occupational status: employed History of recent travel: Yes ([place]) Out of state: No Data Anesthesia Cardiac Studies: No Data to Display
[2020-05-13] MEDS: midazolam 1 mg/mL INJ 2 mL 2 MG IVP (09:18)
--- NOTE | 2020-05-13 11:04 | PM.OP ---
Operative Report Date of procedure: May 13, 2020 Pre-op Diagnosis: Chronic cholecystitis Post-op diagnosis: same Procedure Done: Laparoscopic cholecystectomy Specimens removed/disposition: Gallbladder Surgeon: Miles Lind Anesthesia: General Condition: stable Disposition: PACU Procedure: The patient was taken to the operating room and was intubated under general anesthesia. After the antibiotic had been administered, the abdomen was prepped and draped in a sterile manner. Using a #15 blade, a 1 centimeter infraumbilical curvilinear incision was made and using an open Cornell technique the peritoneal cavity was entered. A 10 millimeter port was placed and 15 millimeters of pneumoperitoneum was created. A 10 millimeter, 30 degrees scope was then introduced. Three 5 millimeter ports were placed in the epigastric, midclavicular and the anterior axillary line two fingerbreadths below the costal margin on the right side under the direct visualization. Ratcheted forceps were introduced into the lateral most port and was used to retract the fundus of the gallbladder cephalad and using forceps the infundibulum of the gallbladder was retracted laterally. Using L-hook cautery the peritoneum overlying the Calot's triangle was opened medially and laterally until the cystic duct and the anterior and posterior branch of cystic artery were skeletonized. Dissection was carried along the body of the gallbladder and after ensuring critical view of safety, 4 clips applied on the cystic duct and 3 clips applied on the cystic artery and cut leaving, 3 clips on the remaining portion of the duct and 2 clips on the anterior and posterior branch of the artery. The rest of the gallbladder was dissected off the liver using L-hook cautery. There was no bleeding or bile leaking noted from the gallbladder fossa and the clips appeared to be in place. An EndoCatch bag was introduced to remove the gallbladder. All the ports were removed under direct visualization and there was no bleeding noted from the port sites. The fascia of the umbilicus was closed using [id number] 0 Vicryl sutures and the subcutaneous tissue was approximated using 3-0 Vicryl sutures. The skin at all four ports were closed using 4-0 Monocryl and Dermabond. A total of 10 millimeters of 0.5% Marcaine was infiltrated around the port sites. The patient was stable throughout the procedure. Ready
--- NOTE | 2020-05-13 11:07 | SUR.PHASEI ---
1059 PATIENT TO PACU FROM OR. SPO2 96% ON SIMPLE MASK AT 8L. 4 INCISIONS TO ABDOMEN, CDI.
[2020-05-13] MEDS: ondansetron 2 mg/ML SDV 2 mL 4 MG IVP ×2 (11:14→11:21)
--- NOTE | 2020-05-13 11:29 | SUR.PHASEI ---
1125 TO OPS. NAUSEA IMPROVED. TOLERATING ICE CHIPS. A/OX3. RR EVEN AND UNLABORED.
[2020-05-13] MEDS: HYDROcodone-acetaminophen 5-325 mg Tablet 1 TAB PO (11:53)
--- NOTE | 2020-05-13 12:21 | ANE.PACU2 ---
Inpatient post-anesthesia follow up: Airway intact: Yes Vital signs: Temperature 97.7 F Pulse Rate 59 Respiratory Rate 18 Blood Pressure 130/83 Pulse Oximetry 97 Oxygen Delivery Me thod Room Air Oxygen Flow Rate 8 Fraction of Inspir ed Oxygen Hydration adequate: Yes Nausea and vomiting: No Pain level: 3 Mental status: Baseline
== END 2020-05-13 12:21 | disposition home or self-care (01) ==
PROVIDERS: PCP Family Medicine; Visit Provider Surgery
PROC: 0FT44ZZ Resection of Gallbladder, Percutaneous Endoscopic Approach (ICD-10-PCS; CPT 47562; principal; 2020-05-13 09:55)
DX: K81.1 Chronic cholecystitis (principal); J45.909 Unspecified asthma, uncomplicated; E66.01 Morbid (severe) obesity due to excess calories; F17.210 Nicotine dependence, cigarettes, uncomplicated; Z68.41 Body mass index [BMI] 40.0-44.9, adult
CPT/HCPCS: 47562; 12345; 88304; 96374; J0131; J0690; J1100; J1885; J2250; J2405; J2704; J2710; J3010; J3490; J7030

== ENCOUNTER → 2020-06-07 14:53 | Outpatient (BNVA) | payer OTHER, SELFPAY | PROVIDERS: PCP Family Medicine; Visit Provider Nurse Practitioner | DX: Z11.59 Encounter for screening for other viral diseases (principal) | CPT/HCPCS: 87635 ==

== ENCOUNTER → 2020-06-10 14:26 | Outpatient (BNVA) | payer OTHER, SELFPAY | PROVIDERS: PCP Family Medicine; Visit Provider Family Medicine | DX: Z11.59 Encounter for screening for other viral diseases (principal) | CPT/HCPCS: 87635 ==

== ENCOUNTER 2020-06-25 09:19 | Outpatient (CLI) | payer SELFPAY ==
[2020-06-26 17:38] LABS: Alternaria Alternata (M6) Ige 0.96 kU/L; Alternaria Class 2; Cat Dander (E1) Ige <0.10 kU/L; Cat Dander Class 0; Common Ragweed (Short) (W1) Ig 0.16 kU/L; D. Farinae Class 0; Dermatophagoides Class 0; Dermatophagoides Farinae (D2) <0.10 kU/L; Dermatophagoides Pteronyssinus <0.10 kU/L; Dog Dander (E5) Ige <0.10 kU/L; Dog Dander Class 0; Elm Class 0/1; English Plantain (W9) Ige 0.12 kU/L; English Plantain Class 0/1; House Dust (Greer) (H1) Ige <0.10 kU/L; House Dust (Hollister- Stier) <0.10 kU/L; House Dust Class 0; Immunoglobulin E 56 kU/L (<OR=114); Lamb'S Quarters (Goose Foot) <0.10 kU/L; Lamb'S Quarters Class 0; Maple (Box Elder) (T1) Ige <0.10 kU/L; Maple Class 0; Mucor Racemosus Class 0; Oak (T7) Ige <0.10 kU/L; Oak Class 0; Penicillium Class 0; Penicillium Notatum (M1) Ige <0.10 kU/L; Ragweeed Class 0/1; Rough Marsh Elder (W16) Ige 0.19 kU/L; Rough Marsh Elder Class 0/1
[2020-06-29 16:24] LABS: Bermuda Class 0; Bermuda Grass (G2) Ige <0.10 kU/L; Johnson Grass (G10) Ige <0.10 kU/L; Johnson Grass Cl 0; June Grass Class 0; June Grass(Kentucky Blue) (G8) <0.10 kU/L; Meadow Fescue (G4) Ige <0.10 kU/L; Meadow Fescue Class 0; Orchard Grass (Cocksfoot) (G3) <0.10 kU/L; Perennial Rye Grass (G5) Ige <0.10 kU/L; Perennial Rye Grass Class 0; Sweet Vernal Class 0; Sweet Vernal Grass (G1) Ige <0.10 kU/L; Timothy Grass (G6) Ige <0.10 kU/L; Timothy Grass Class 0
[2020-07-01 15:08] LABS: Aspergillus Fumigatus, Igg Ab, 25.1 mg/L (<=102)
== END 2020-06-25 09:20 | disposition home or self-care (01) ==
LOC: LAB 09:23
PROVIDERS: PCP Family Medicine; Visit Provider Internal Medicine Critical Care Medicine
DX: R06.02 Shortness of breath (principal); J45.909 Unspecified asthma, uncomplicated
CPT/HCPCS: 36415; 82785; 86003

== ENCOUNTER → 2020-07-30 13:40 | Outpatient (BNVA) | payer SELFPAY | PROVIDERS: PCP Family Medicine; Visit Provider Nurse Practitioner | DX: M79.675 Pain in left toe(s) (principal) | CPT/HCPCS: 84550 ==

== ENCOUNTER 2020-10-31 14:26 | Emergency (ER) | payer SELFPAY ==
[2020-10-31 14:37] VITALS: BP 150/88; PULSE 87; RESP 14; TEMP 36.8; O2SAT 99; BMI 43.4
[2020-10-31 14:47] VITALS: BP 150/95; PULSE 83; RESP 16; O2SAT 99
--- NOTE | 2020-10-31 14:49 | CTR_ITS ---
PROCEDURE INFORMATION: Exam: CT Abdomen And Pelvis With Contrast Exam date and time: 10/31/2020 3:01 PM Age: 34 years old Clinical indication: Abdominal pain; Generalized; Prior surgery; Surgery type: Gb; Additional info: Abd pain TECHNIQUE: Imaging protocol: Computed tomography of the abdomen and pelvis with contrast. Radiation optimization: All CT scans at this facility use at least one of these dose optimization techniques: automated exposure control; mA and/or kV adjustment per patient size (includes targeted exams where dose is matched to clinical indication); or iterative reconstruction. Contrast material: OMNI 300; Contrast volume: 95 ml; Contrast route: INTRAVENOUS (IV); COMPARISON: CT Abdomen/Pelvis Renal [id number] 06/05/2019 6:52 PM RADIATION DOSE METRICS: Total DLP (mGy-cm): 1804.42 FINDINGS: Liver: Normal. No mass. Gallbladder and bile ducts: The gallbladder has been removed. Pancreas: Normal. No ductal dilation. Spleen: Normal. No splenomegaly. Adrenal glands: Normal. No mass. Kidneys and ureters: Normal. No hydronephrosis. Stomach and bowel: There is diverticulosis of the colon without evidence of diverticulitis. Appendix: Appendix is thickened measuring 9 mm. There is no periappendiceal inflammatory stranding. Intraperitoneal space: Unremarkable. No free air. No significant fluid collection. Vasculature: Unremarkable. No abdominal aortic aneurysm. Lymph nodes: Unremarkable. No enlarged lymph nodes. Urinary bladder: Unremarkable as visualized. Reproductive: Unremarkable as visualized. Bones/joints: Chronic T11 and T12 mild compression deformities. Soft tissues: Unremarkable. CT/CT abdomen pelvis w con* [id number] IMPRESSION: Appendix is thickened measuring 9 mm. There are no periappendiceal inflammatory changes. This is an indeterminate appendix. Differential includes early acute appendicitis versus normal variant. If acute appendicitis is clinically suspected, repeat imaging is recommended. Radiation Dose CTDIVOL = (mGy): DLP = 1804.42 (mGy-cm)
--- NOTE | 2020-10-31 14:51 | ED_ITS ---
HPI - Abdominal Pain General: Chief Complaint: Abdominal Pain Stated Complaint: abdominal pain, upper - right side Time Seen by Provider: 10/31/20 14:41 History of Present Illness: HPI narrative: 34-year-old male presents emergency room with complaint of epigastric and right upper quadrant abdominal pain to couple episodes this week to times requiring him to leave work. He gets nauseous does not have any diarrhea. He gets epigastric discomfort radiating d own into the right side. Denies any hematochezia hematemesis cough. With no dysuria urgency or frequency is previously had cholecystectomy he denies any use of alcohol. MD elicited complaint: abdominal pain Onset (ago): day(s) Pain Consistency: intermittent Location: Epigastric and RUQ Severity: moderate Quality: cramping Radiation: RLQ Exacerbating factors: eating Relieving factors: nothing Associated Symptoms: Reports anorexia, GI cramping, heartburn, nausea and poor appetite; Denies belching, bloating, change in bowel habits, change in stool character, chills, coffee ground emesis, constipation, diarrhea, dyspepsia, dysuria, excessive flatus, fever(s), hematochezia, hematuria, hematemesis, fecal incontinence, loose stools, melena, syncope, vomiting and other Review of Systems Const: Denies: fever(s) or chills ENMT: Denies: throat pain, ear or mastoid pain, nasal discharge or nasal congestion Card: Denies: syncope Resp: Denies: dyspnea, productive cough or non-productive cough GI: Reports: nausea, heartburn and GI cramping; Denies: vomiting, hematemesis, coffee ground emesis, diarrhea, constipation, bloating, belching, excessive flatus, fecal incontinence, change in bowel habits, change in stool character, hematochezia, melena or other : Denies: dysuria or hematuria Skin/Breast: Denies: rash or pruritus PFSH ED PFSH: Medical History (Updated 10/31/20 @ 17:14 by Luisito Lea MD) Asthma Chronic low back pain Chronic migraine Diverticulosis Surgical History (Updated 10/31/20 @ 17:06 by Luisito Lea MD) Anal warts Excision x 1 H/O circumcision Status post laparoscopic cholecystectomy (05/13/20) Family History Mother Cancer lung Father Cancer lung, colon Family/Other Cancer cousin, thyroid cancer Other CAD (coronary artery disease) Chronic kidney disease (CKD) Diabetes Denies family history of Anesthesia complication Bleeding disorder Social History Smoking and tobacco status: current every day smoker cigarettes Packs smoked per day: 0.75 Years cigarettes smoked: 10 Quit status (tobacco): has tried quititng Second hand smoke exposure: Yes Alcohol intake: never Lives independently: Yes Household members: none Marital status: Single Current occupational status: employed History of recent travel: Yes ([place]) Out of state: No Current gender identity: Male Physical Exam Const: COMMON NORMALS: no acute distress GENERAL APPEARANCE: cooperative and comfortable ORIENTATION/CONSCIOUSNESS: Yes awake, Yes oriented to person, Yes oriented to place and Yes oriented to time Neck/C-Spine: COMMON NORMALS: no JVD Resp: COMMON NORMALS: normal respiratory effort, No retractions, No use of accessory muscles and clear to auscultation bilaterally AUSCULTATION: clear to auscultation bilaterally Cardio: COMMON NORMALS: no JVD, regular rate, regular rhythm and No murmurs present (Cardio) RATE: regular rate RHYTHM: regular rhythm GI: COMMON NORMALS: Soft to palpation and No hepatosplenomegaly present AUSCULTATION: Yes normoactive bowel sounds PALPATION: Yes Soft to palpation, Yes Tenderness to palpation present (GI) Details: RUQ, No Guarding due to palpation present (GI) and Yes No hepatosplenomegaly present Extremity: COMMON NORMALS: normal to inspection, capillary refill normal, no clubbing, cyanosis or edema, no calf tenderness and no pedal edema Neuro: SENSORIUM/ORIENTATION: Yes oriented to person, Yes oriented to place and Yes oriented to time Skin: COMMON NORMALS: no rashes or lesions noted GENERAL SKIN EXAM: no rashes or lesions noted Course Vital Signs: Vital signs: Vital Signs Temperature 98.2 F 10/31/20 14:37 Pulse Rate 79 10/31/20 17:06 Respiratory Rate 14 10/31/20 17:06 Blood Pressure 130/83 10/31/20 17:06 Pulse Oximetry 97 10/31/20 17:06 MDM - Abdominal Pain MDM Narrative: Medical decision making narrative: White count minimally elevated with no significant differential. Patient has more focal pain extremities work-up is completed of the right lower quadrant however on repeat exam he has no peritoneal signs his exam is not convincing for acute appendicitis. CT abdomen and pelvis read as possible early acute appendicitis. Consulted Dr. Middleton he care agrees it is unlikely to be appendicitis patient was presented with several options including being discharged and returning if has further symptoms. He would prefer to do that as opposed to observation or earlier exploratory laparotomy. See Dr. Lea's note patient is to return if he has further problems. Lab Data: Labs: Lab Results 10/31/20 10/31/20 10/31/20 Range/Units 14:47 14:47 14:47 WBC 11.0 H (4.0-10.0) 10^3/ uL RBC 5.53 H (4.1-5.3) 10^6/u L Hgb 16.2 (11.7-16.6) g/dL Hct 48.4 (42.0-52.0) % MCV 87.5 (80-94) fL MCH 29.3 (28.0-34.0) pg MCHC 33.5 (30.0-36.0) g/dL RDW 13.3 (12.1-15.1) % Plt Count 355 (130-400) 10^3/c mm MPV 8.7 (7.4-10.4) fL Neut % (Auto) 54.7 % Lymph % (Auto) 37.2 % [place] % (Auto) 4.3 % Eos % (Auto) 3.0 % Baso % (Auto) 0.5 % Neut # (Auto) 5.99 (1.8-7.7) 10^3/u L Lymph # (Auto) 4.1 (0.8-4.8) 10^3/u L [place] # (Auto) 0.5 (0.2-0.9) 10^3/u L Eos # (Auto) 0.3 (0.0-0.8) 10^3/u L Baso # (Auto) 0.1 (0.0-0.1) 10^3/u L Nucleated RBC % (a uto) 0 % Nucleated RBCs # 0.0 /100WBC Sodium 134 L (136-145) mmol/L Potassium 3.8 (3.5-5.1) mmol/L Chloride 100 (98-107) mmol/L Carbon Dioxide 24 (22-29) mmol/L Anion Gap 13.8 (5-19) BUN 5 L (6-20) mg/dL Creatinine 0.7 (0.7-1.2) mg/dL GFR Calculation 128.3 (90-130) mL/min Glucose 87 (65-115) mg/dL Calculated Osmolal ity 275 L (285-295) mOsm/k g Calcium 9.2 (8.5-10.5) mg/dL Total Bilirubin 0.5 (0.15-1.2) mg/dL AST 25 (0-40) U/L ALT 30 (0-41) U/L Alkaline Phosphata se 84 (40-130) IU/L Total Protein 7.1 (6.6-8.7) g/dL Albumin 4.3 (3.5-5.2) g/dL Globulin 2.8 (1.3-4.6) g/dL Lipase 14 (13-60) U/L Urine Color (Yellow) Urine Appearance (CLEAR) Urine pH (5-7) Ur Specific Gravit y (1.005-1.030) Urine Protein (Negative) Urine Glucose (UA) (Normal) Urine Ketones (Negative) Urine Blood (Negative) Urine Nitrate (Negative) Urine Bilirubin (Negative) Prot Sulfosalicyli c Acd (Negative) Urine Urobilinogen (Negative) mg/dL Ur Leukocyte Debbi ase (Negative) Serum Ketones Negative (Negative) 10/31/20 Range/Units 15:16 WBC (4.0-10.0) 10^3/ uL RBC (4.1-5.3) 10^6/u L Hgb (11.7-16.6) g/dL Hct (42.0-52.0) % MCV (80-94) fL MCH (28.0-34.0) pg MCHC (30.0-36.0) g/dL RDW (12.1-15.1) % Plt Count (130-400) 10^3/c mm MPV (7.4-10.4) fL Neut % (Auto) % Lymph % (Auto) % [place] % (Auto) % Eos % (Auto) % Baso % (Auto) % Neut # (Auto) (1.8-7.7) 10^3/u L Lymph # (Auto) (0.8-4.8) 10^3/u L [place] # (Auto) (0.2-0.9) 10^3/u L Eos # (Auto) (0.0-0.8) 10^3/u L Baso # (Auto) (0.0-0.1) 10^3/u L Nucleated RBC % (a uto) % Nucleated RBCs # /100WBC Sodium (136-145) mmol/L Potassium (3.5-5.1) mmol/L Chloride (98-107) mmol/L Carbon Dioxide (22-29) mmol/L Anion Gap (5-19) BUN (6-20) mg/dL Creatinine (0.7-1.2) mg/dL GFR Calculation (90-130) mL/min Glucose (65-115) mg/dL Calculated Osmolal ity (285-295) mOsm/k g Calcium (8.5-10.5) mg/dL Total Bilirubin (0.15-1.2) mg/dL AST (0-40) U/L ALT (0-41) U/L Alkaline Phosphata se (40-130) IU/L Total Protein (6.6-8.7) g/dL Albumin (3.5-5.2) g/dL Globulin (1.3-4.6) g/dL Lipase (13-60) U/L Urine Color Yellow (Yellow) Urine Appearance Clear (CLEAR) Urine pH 8 H (5-7) Ur Specific Gravit y 1.015 (1.005-1.030) Urine Protein Neg (Negative) Urine Glucose (UA) Norm (Normal) Urine Ketones Negative (Negative) Urine Blood Neg (Negative) Urine Nitrate Negative (Negative) Urine Bilirubin Neg (Negative) Prot Sulfosalicyli c Acd Negative (Negative) Urine Urobilinogen 1 H (Negative) mg/dL Ur Leukocyte Debbi ase Negative (Negative) Serum Ketones (Negative) Discharge Plan Discharge Patient Disposition: Home Clinical Impression: Abdominal pain Condition: Stable Prescriptions: No Action budesonide-formoterol [Symbicort] 160-4.5 mcg/actuation HFA aerosol inhaler 2 puff INHALATION Q12H Qty: 10.2 RF: 1 albuterol sulfate 90 mcg/actuation HFA aerosol inhaler 2 puff INHALATION 6XD PRN (Reason: shortness of breath or wheezing) Qty: 8.5 RF: 1 Excedrin Migraine 250-250-65 mg Tablet 4 - 10 tab PO PRN RF: 0 Discharge Orders: Discharge ED (Routine); Ordered 10/31/20 Ordered By: Jj Wheatley Referrals: Ngoc Gomez DO [Primary Care Provider] - Discharge Diet: Clear Liquid Discharge Activity: Increase activity as tolerated Patient Instructions: Abdominal Pain (ED), Opioid Safety Activity Restrictions/Additional Instructions: Clear liquid diet for 24 hours. Advance diet as tolerated if you have worsening pain or change symptoms return to emergency room Coding Level of Care Code ED [employer] [facility] Exam Detailed
[2020-10-31 15:00] LABS: Basophils # 0.1 10^3/uL (0.0-0.1); Basophils % 0.5 %; Eosinophils # 0.3 10^3/uL (0.0-0.8); Hematocrit 48.4 % (42.0-52.0); Hemoglobin 16.2 g/dL (11.7-16.6); Lymphocytes # 4.1 10^3/uL (0.8-4.8); Lymphocytes % 37.2 %; Mean Corpuscular HGB Conc 33.5 g/dL (30.0-36.0); Mean Corpuscular Hemoglobin 29.3 pg (28.0-34.0); Mean Corpuscular Volume 87.5 fL (80-94); Mean Platelet Volume 8.7 fL (7.4-10.4); Monocytes # 0.5 10^3/uL (0.2-0.9); Monocytes % 4.3 %; Neutrophils # 5.99 10^3/uL (1.8-7.7); Neutrophils % 54.7 %; Nucleated Red Blood Cells % 0 %; Platelet Count 355 10^3/cmm (130-400); Red Blood Count 5.53 10^6/uL (4.1-5.3); Red Cell Distribution Width 13.3 % (12.1-15.1)
[2020-10-31 15:22] LABS: Ketone (Acetest) Serum Negative (Negative)
[2020-10-31] MEDS: sodium chloride 0.9% 1,000 ML 999 ML IV (15:22)
[2020-10-31] MEDS: ondansetron 2 mg/ML SDV 2 mL 4 MG IVP (15:22)
[2020-10-31 15:23] VITALS: BP 147/99; PULSE 81; RESP 15; O2SAT 97
[2020-10-31 15:24] LABS: Add Urine Microscopic? NO
[2020-10-31] MEDS: iohexol 300 mg/mL 100 mL Btl IV (15:24)
[2020-10-31 15:27] LABS: Alanine Aminotransferase 30 U/L (0-41); Albumin Level 4.3 g/dL (3.5-5.2); Alkaline Phosphatase 84 IU/L (40-130); Anion Gap 13.8 (5-19); Aspartate Amino Transferase 25 U/L (0-40); Blood Urea Nitrogen 5 mg/dL (6-20); Calcium 9.2 mg/dL (8.5-10.5); Carbon Dioxide 24 mmol/L (22-29); Chloride 100 mmol/L (98-107); Globulin 2.8 g/dL (1.3-4.6); Glomerular Filtration Rate 128.3 mL/min (90-130); Glucose 87 mg/dL (65-115); Lipase 14 U/L (13-60); Osmolality Calculated 275 mOsm/kg (285-295); Potassium 3.8 mmol/L (3.5-5.1); Sodium 134 mmol/L (136-145); Total Bilirubin 0.5 mg/dL (0.15-1.2); Total Protein 7.1 g/dL (6.6-8.7)
[2020-10-31 15:39] LABS: Blood Urine Neg (Negative); Glucose Urine UA Norm (Normal); Ketones Urine Negative (Negative); Nitrate Urine Negative (Negative); Protein Urine Neg (Negative); Specific Gravity, Urine 1.015 (1.005-1.030); Urine Appearance Clear (CLEAR); Urine Color Yellow (Yellow); pH Urine 8 (5-7)
[2020-10-31 15:40] LABS: Bilirubin Urine Neg (Negative); Leukocyte Esterase Urine Negative (Negative); Sulfosalicylic Acid Urine Negative (Negative); Urobilinogen Urine 1 mg/dL (Negative)
[2020-10-31 16:19] VITALS: BP 158/118; PULSE 72; RESP 20; O2SAT 95
--- NOTE | 2020-10-31 17:03 | P.CONIM_ITS ---
Providers/Reason For Consult Consulting Physican/Specialty*: General Surgery Luisito Lea MD Reason for Consult*: Right-sided abdominal pain with nausea and vomiting. Primary Care Provider: Ngoc Gomez DO History of Present Illness History of Present Illness Henry Arteaga is a 34 year old male who says he developed some right-sided abdominal pain 3 days ago; he says it initially started up higher but then moved down the right side somewhat. He currently points to the right mid abdomen just above the transverse level of the umbilicus. He ended up leaving work early that day. The next 2 days he had off from work but says his pain continued and he did eventually develop some nausea and vomiting. He also says that he has been somewhat dizzy and lightheaded at times. Today he thinks he may have had a fever and went home from work early again. He normally has runny bowel movements but says they have become more formed and solid recently. He denies any evidence of hematemesis or hematochezia. The patient came to the emergency room and a CAT scan showed an appendix that is mildly enlarged but no evidence of inflammatory change. His white blood cell count was found to be minimally elevated, so the emergency room physician (Dr. Wheatley) asked me if I would see the patient in consultation. Review of Systems General: Reports: 10 or more systems reviewed and unremarkable except in HPI and below Const: Reports: fever(s) ( felt hot but did not take temperature) GI: Reports: abdominal pain, nausea and vomiting; Denies: hematemesis or melena Neuro: Reports: dizziness Meds/Allergies Home Medications and Allergies Home Medications Medication Instructions Recorded Confirmed Last Taken Type Excedrin Migraine 4 - 10 tab PO PRN 02/25/20 10/31/20 10/29/20 History 6 tabs albuterol sulfate 90 mcg/actuation 2 puff INHALATION 6XD PRN #8.5 gm 08/24/20 10/31/20 Unknown Rx aerosol inhaler budesonide-formoterol HFA 160 2 puff INHALATION Q12H #10.2 gm 08/24/20 10/31/20 10/31/20 Rx mcg-4.5 mcg/actuation aerosol inhaler Allergies Allergy/AdvReac Type Severity Reaction Status Date / Time coconut Allergy Severe ALGY-Swell Verified 10/31/20 16:20 Lip/Tongue/Throat some kind of antibiotic Allergy Unknown Uncoded 10/31/20 16:20 PFSH Acute PFSH: Medical History (Updated 10/31/20 @ 17:14 by Luisito Lea MD) Asthma Chronic low back pain Chronic migraine Diverticulosis Surgical History (Updated 10/31/20 @ 17:06 by Luisito Lea MD) Anal warts Excision x 1 H/O circumcision Status post laparoscopic cholecystectomy (05/13/20) Family History Mother Cancer lung Father Cancer lung, colon Family/Other Cancer cousin, thyroid cancer Other CAD (coronary artery disease) Chronic kidney disease (CKD) Diabetes Denies family history of Anesthesia complication Bleeding disorder Social History Smoking and tobacco status: current every day smoker cigarettes Packs smoked per day: 0.75 Years cigarettes smoked: 10 Quit status (tobacco): has tried quititng Second hand smoke exposure: Yes Alcohol intake: never Lives independently: Yes Household members: none Marital status: Single Current occupational status: employed History of recent travel: Yes ([place]) Out of state: No Current gender identity: Male Vitals/I&O/Wt Last Vital Signs Temp 98.2 F 10/31/20 14:37 Pulse 72 10/31/20 16:19 Resp 20 H 10/31/20 16:19 BP 158/118 10/31/20 16:19 Pulse Ox 95 10/31/20 16:19 10/31/20 10/31/20 10/31/20 06:59 14:59 22:59 Intake Total 1000 / 1000 Balance 1000 / 1000 Weight last 48 hrs Weight 245 lb Physical Exam Narrative: EXAM NARRATIVE: The patient was encountered in his room in the emergency department. He does not appear to be in any distress. The pupils are equal. No carotid bruits are heard. The lungs are clear anteriorly. The heart is regular. The abdomen is moderately obese but bowel sounds are present, although perhaps slightly hypoactive. The patient has some mild tenderness along the right side of the abdomen but Rovsing's sign is negative and there is no evidence of any peritoneal signs, diffuse or localized. No masses are palpated. The extremities reveal no edema. Neurologically the patient appears to be grossly intact. Data Imaging^: CT Abd/Pel: Radiologist's impression: CT abdomen/pelvis 10/31/2020 IMPRESSION: Appendix is thickened measuring 9 mm. There are no periappendiceal inflammatory changes. This is an indeterminate appendix. Differential includes early acute appendicitis versus normal variant. A&P Assessment and plan (1) Abdominal pain: CT reviewed. I agree that the appendix is a little generous in diameter but there are no inflammatory changes in the area. The ascending colon seems to possibly have some prominent folds, making me wonder about the possibility of some localized colitis, but there are no surrounding inflammatory changes and the patient's exam is not currently terribly impressive. His white blood cell count is just above normal, but the differential is within normal limits. I told the patient that I highly doubt this has anything to do with his appendix. I suspect he is probably dealing with some type of a viral syndrome given all of his other constitutional symptoms. I did tell him that occasionally we can see acute bacterial appendicitis develop following a viral syndrome, but currently I would not necessarily recommend exploration/appendectomy. We discussed options of him going home with instructions to return if he develops new or worsening symptoms, staying in the hospital for observation with plans to recheck his laboratory studies in the morning, or being aggressive and proceeding to the operating room for laparoscopy and probable appendectomy, even if we find a normal-appearing appendix and no contraindication to its removal. The patient seems to understand all of the options; he would like to go home and has agreed to return if his symptoms worsen or if new symptoms develop. Status: Acute (2) Nausea and vomiting: Status: Acute Consult Attestations Medical Necessity Statement: Patient's disposition and wishes discussed with Dr. Wheatley. The patient is going to be discharged from the emergency room today. See above. 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
[2020-10-31 17:06] VITALS: BP 130/83; PULSE 79; RESP 14; O2SAT 97
== END 2020-10-31 17:06 | disposition home or self-care (01) ==
PROVIDERS: Emergency Provider Family Medicine; PCP Family Medicine
DX: R10.9 Unspecified abdominal pain (principal); F17.210 Nicotine dependence, cigarettes, uncomplicated
CPT/HCPCS: 12345; 74177; 80053; 81003; 82009; 83690; 85025; 96361; 96374; 99283; J2405; J7030; Q9967

== ENCOUNTER 2020-11-07 07:31 | Emergency (ER) | payer SELFPAY ==
--- NOTE | 2020-11-07 07:33 | CTR_ITS ---
PROCEDURE INFORMATION: Exam: CT Abdomen And Pelvis With Contrast Exam date and time: 11/07/2020 7:39 AM Age: 34 years old Clinical indication: Abdominal pain; Localized; Right lower quadrant (rlq); Prior surgery; Surgery type: Gb; Additional info: Abd pain TECHNIQUE: Imaging protocol: Computed tomography of the abdomen and pelvis with contrast. Radiation optimization: All CT scans at this facility use at least one of these dose optimization techniques: automated exposure control; mA and/or kV adjustment per patient size (includes targeted exams where dose is matched to clinical indication); or iterative reconstruction. Contrast material: OMNI 300; Contrast volume: 95 ml; Contrast route: INTRAVENOUS (IV); COMPARISON: CT abdomen pelvis w con* [id number] 10/31/2020 3:25 PM RADIATION DOSE METRICS: Total DLP (mGy-cm): 1981.38 FINDINGS: Liver: Normal. No mass. Gallbladder and bile ducts: Cholecystectomy. Normal bile ducts. Pancreas: Normal. No ductal dilation. Spleen: Normal. No splenomegaly. Adrenal glands: Normal. No mass. Kidneys and ureters: Normal. No hydronephrosis. Stomach and bowel: There is diverticulosis of the colon but there is no evidence of acute diverticulitis. There is no evidence of bowel obstruction or dilatation. Appendix: Again noted is mild thickening of the appendix with a maximum diameter of 9 mm. There is no periappendiceal inflammation or infiltration. The appendix has not changed since previous examination from 10/31/2020. It is also similar to an older scan from 05/17/2019. The mild thickening could indicate acute appendicitis but the lack of change suggests that it is normal variation. Intraperitoneal space: Unremarkable. No free air. No significant fluid collection. Vasculature: Unremarkable. No abdominal aortic aneurysm. Lymph nodes: Unremarkable. No enlarged lymph nodes. Urinary bladder: Unremarkable as visualized. Reproductive: Unremarkable as visualized. Bones/joints: Degenerative changes are present in the lower thoracic spine. There is mild compression deformity of T11 and T12. No acute fractures are seen. Soft tissues: Unremarkable. CT/CT abdomen pelvis w con* [id number] IMPRESSION: 1. There is mild thickening of the appendix with a diameter of 9 mm. There is no obvious periappendiceal infiltration or inflammation. The appendix has not changed when compared to the previous study from 10/31/2020 and it is also similar to an old scan from 06/05/2019. Though this thickening could indicate acute appendicitis the lack of change may suggest normal variation. This needs to be correlated with clinical presentation and any laboratory values suggesting acute inflammation. 2. Diverticulosis. No evidence of diverticulitis. Radiation Dose CTDIVOL = (mGy): DLP = 1981.38 (mGy-cm)
[2020-11-07 07:35] VITALS: BP 136/98; PULSE 88; RESP 30; TEMP 36.6; O2SAT 99; BMI 39.8
--- NOTE | 2020-11-07 07:39 | ED_ITS ---
HPI - Abdominal Pain General: Chief Complaint: Abdominal Pain Stated Complaint: abdominal pain Time Seen by Provider: 11/07/20 07:32 History of Present Illness: HPI narrative: 34-year-old male seen 1 week ago with abdominal pain. At that time he had some very vague right lower quadrant abdominal discomfort on exam was not real convincing for acute appendicitis there was a question of appendicitis on his CT surgery was consulted they felt as well that he did not have an acute appendicitis. See Dr. Lea's notes from that visit he was offered admission for observation versus monitoring at home and returning if he worsened. Patient states since he was last seen the discomfort has persisted mildly but then suddenly got much worse this morning. He is now complaining of severe right lower quadrant pain. He denies vomiting or diarrhea he has had some nausea. Denies dysuria urgency or frequency. Patient last ate last night. MD elicited complaint: abdominal pain Pertinent past history: other (Recent ER visit 1 week ago see HPI.) Onset (ago): minute(s) (Sudden worsening just prior to arrival) Location: RLQ Severity: severe Quality: stabbing Radiation: RLQ Exacerbating factors: movement Relieving factors: rest Associated Symptoms: Reports anorexia, chills, GI cramping, nausea and poor appetite; Denies belching, bloating, change in bowel habits, change in stool character, coffee ground emesis, constipation, diarrhea, dyspepsia, dysuria, excessive flatus, heartburn, hematochezia, hematuria, hematemesis, fecal incontinence, loose stools, melena, syncope and vomiting Review of Systems Const: Reports: chills ENMT: Denies: throat pain, ear or mastoid pain, nasal discharge or nasal congestion Card: Denies: syncope Resp: Denies: dyspnea, productive cough or non-productive cough GI: Reports: nausea and GI cramping; Denies: vomiting, hematemesis, coffee ground emesis, heartburn, diarrhea, constipation, bloating, belching, excessive flatus, fecal incontinence, change in bowel habits, change in stool character, hematochezia or melena : Denies: dysuria or hematuria Skin/Breast: Denies: rash or pruritus PFSH ED PFSH: Medical History Asthma Chronic low back pain Chronic migraine Diverticulosis Surgical History Anal warts Excision x 1 H/O circumcision Status post laparoscopic cholecystectomy (05/13/20) Family History Mother Cancer lung Father Cancer lung, colon Family/Other Cancer cousin, thyroid cancer Other CAD (coronary artery disease) Chronic kidney disease (CKD) Diabetes Denies family history of Anesthesia complication Bleeding disorder Social History Smoking and tobacco status: current every day smoker cigarettes Packs smoked per day: 0.5 Years cigarettes smoked: 10 Quit status (tobacco): has tried quititng Second hand smoke exposure: Yes Alcohol intake: never Substance/Drug Use: never Lives independently: Yes Household members: none Marital status: Single Current occupational status: employed History of recent travel: Yes ([place]) Out of state: No Current gender identity: Male Physical Exam Const: COMMON NORMALS: no acute distress GENERAL APPEARANCE: cooperative and comfortable ORIENTATION/CONSCIOUSNESS: Yes awake, Yes oriented to person, Yes oriented to place and Yes oriented to time HENMT: COMMON NORMALS: normocephalic, atraumatic and hearing grossly normal bilaterally HEAD & SCALP: normocephalic and atraumatic Neck/C-Spine: COMMON NORMALS: no JVD Resp: COMMON NORMALS: normal respiratory effort, No retractions, No use of accessory muscles and clear to auscultation bilaterally AUSCULTATION: clear to auscultation bilaterally Cardio: COMMON NORMALS: no JVD, regular rate, regular rhythm and No murmurs present (Cardio) RATE: regular rate RHYTHM: regular rhythm GI: COMMON NORMALS: Soft to palpation and No hepatosplenomegaly present AUSCULTATION: Yes normoactive bowel sounds PALPATION: Yes Soft to palpation, No Tenderness to palpation present (GI), No Guarding due to palpation present (GI) and Yes No hepatosplenomegaly present Extremity: COMMON NORMALS: normal to inspection, capillary refill normal, no clubbing, cyanosis or edema, no calf tenderness and no pedal edema Neuro: SENSORIUM/ORIENTATION: Yes oriented to person, Yes oriented to place and Yes oriented to time Skin: COMMON NORMALS: no rashes or lesions noted GENERAL SKIN EXAM: no rashes or lesions noted Course Vital Signs: Vital signs: Vital Signs Temperature 98 F 11/07/20 07:35 Pulse Rate 88 11/07/20 07:35 Respiratory Rate 18 11/07/20 08:59 Blood Pressure 136/98 11/07/20 07:35 Pulse Oximetry 99 11/07/20 07:35 MDM - Abdominal Pain MDM Narrative: Medical decision making narrative: Reviewed lab findings with the patient. He has no elevation of white count is CT they still say the slight abnormality the appendix but in comparison to 1 week ago when he was seen there is no significant change radiology mentions it given that it could be just a slight variation of normal. Patient has no sign of an inguinal hernia he has no testicular pain is nothing cutaneous there is no abdominal wall hernia. The remainder of his CT was unremarkable he has no blood in his urine and no cystitis. I reviewed all these things with the patient at this point we can rule out multiple different etiologies of the pain however he cannot give a definitive diagnosis why he is getting this abdominal pain. He has previously had a colonoscopy that he reports was unremarkable. At this point we will discharge him home with antiemetics and pain medications and will have him follow-up with his primary care doctor next week as well as with general surgery to review if he has any worsening symptoms return to the emergency room. Offered to consult general surgery in the emergency room patient declined given the fact the CT was normal. Lab Data: Labs: Lab Results 11/07/20 11/07/20 11/07/20 Range/Units 07:44 07:44 07:44 WBC 9.8 (4.0-10.0) 10^3/ uL RBC 5.67 H (4.1-5.3) 10^6/u L Hgb 16.7 H (11.7-16.6) g/dL Hct 49.9 (42.0-52.0) % MCV 88.0 (80-94) fL MCH 29.5 (28.0-34.0) pg MCHC 33.5 (30.0-36.0) g/dL RDW 13.6 (12.1-15.1) % Plt Count 377 (130-400) 10^3/c mm MPV 9.0 (7.4-10.4) fL Neut % (Auto) 56.8 % Lymph % (Auto) 32.7 % Davidson % (Auto) 5.7 % Eos % (Auto) 3.8 % Baso % (Auto) 0.6 % Neut # (Auto) 5.55 (1.8-7.7) 10^3/u L Lymph # (Auto) 3.2 (0.8-4.8) 10^3/u L Davidson # (Auto) 0.6 (0.2-0.9) 10^3/u L Eos # (Auto) 0.4 (0.0-0.8) 10^3/u L Baso # (Auto) 0.1 (0.0-0.1) 10^3/u L Nucleated RBC % (a uto) 0 % Nucleated RBCs # 0.0 /100WBC Sodium 134 L (136-145) mmol/L Potassium 3.9 (3.5-5.1) mmol/L Chloride 101 (98-107) mmol/L Carbon Dioxide 22 (22-29) mmol/L Anion Gap 14.9 (5-19) BUN 6 (6-20) mg/dL Creatinine 0.8 (0.7-1.2) mg/dL GFR Calculation 110.0 (90-130) mL/min Glucose 107 (65-115) mg/dL Calculated Osmolal ity 276 L (285-295) mOsm/k g Lactic Acid 2.5 H (0.5-2.2) mmol/L Calcium 9.3 (8.5-10.5) mg/dL Total Bilirubin 0.3 (0.15-1.2) mg/dL AST 27 (0-40) U/L ALT 31 (0-41) U/L Alkaline Phosphata se 96 (40-130) IU/L Total Protein 7.2 (6.6-8.7) g/dL Albumin 4.3 (3.5-5.2) g/dL Globulin 2.9 (1.3-4.6) g/dL Lipase 18 (13-60) U/L Urine Color (Yellow) Urine Appearance (CLEAR) Urine pH (5-7) Ur Specific Gravit y (1.005-1.030) Urine Protein (Negative) Urine Glucose (UA) (Normal) Urine Ketones (Negative) Urine Blood (Negative) Urine Nitrate (Negative) Urine Bilirubin (Negative) Prot Sulfosalicyli c Acd (Negative) Urine Urobilinogen (Negative) mg/dL Ur Leukocyte Debbi ase (Negative) 11/07/20 Range/Units 08:40 WBC (4.0-10.0) 10^3/ uL RBC (4.1-5.3) 10^6/u L Hgb (11.7-16.6) g/dL Hct (42.0-52.0) % MCV (80-94) fL MCH (28.0-34.0) pg MCHC (30.0-36.0) g/dL RDW (12.1-15.1) % Plt Count (130-400) 10^3/c mm MPV (7.4-10.4) fL Neut % (Auto) % Lymph % (Auto) % Davidson % (Auto) % Eos % (Auto) % Baso % (Auto) % Neut # (Auto) (1.8-7.7) 10^3/u L Lymph # (Auto) (0.8-4.8) 10^3/u L Davidson # (Auto) (0.2-0.9) 10^3/u L Eos # (Auto) (0.0-0.8) 10^3/u L Baso # (Auto) (0.0-0.1) 10^3/u L Nucleated RBC % (a uto) % Nucleated RBCs # /100WBC Sodium (136-145) mmol/L Potassium (3.5-5.1) mmol/L Chloride (98-107) mmol/L Carbon Dioxide (22-29) mmol/L Anion Gap (5-19) BUN (6-20) mg/dL Creatinine (0.7-1.2) mg/dL GFR Calculation (90-130) mL/min Glucose (65-115) mg/dL Calculated Osmolal ity (285-295) mOsm/k g Lactic Acid (0.5-2.2) mmol/L Calcium (8.5-10.5) mg/dL Total Bilirubin (0.15-1.2) mg/dL AST (0-40) U/L ALT (0-41) U/L Alkaline Phosphata se (40-130) IU/L Total Protein (6.6-8.7) g/dL Albumin (3.5-5.2) g/dL Globulin (1.3-4.6) g/dL Lipase (13-60) U/L Urine Color Straw (Yellow) Urine Appearance Clear (CLEAR) Urine pH 8 H (5-7) Ur Specific Gravit y 1.010 (1.005-1.030) Urine Protein Neg (Negative) Urine Glucose (UA) Norm (Normal) Urine Ketones Negative (Negative) Urine Blood Neg (Negative) Urine Nitrate Negative (Negative) Urine Bilirubin Neg (Negative) Prot Sulfosalicyli c Acd Negative (Negative) Urine Urobilinogen Norm (Negative) mg/dL Ur Leukocyte Debbi ase Negative (Negative) Discharge Plan Discharge Patient Disposition: Home Clinical Impression: Abdominal pain Condition: Stable Prescriptions: New hydrocodone-acetaminophen 5-325 mg tablet 1 tab PO Q6H PRN (Reason: pain) Qty: 20 RF: 0 Zofran 4 mg tablet 4 mg PO Q6H PRN (Reason: nausea and vomiting) Qty: 20 RF: 0 No Action budesonide-formoterol [Symbicort] 160-4.5 mcg/actuation HFA aerosol inhaler 2 puff INHALATION Q12H Qty: 10.2 RF: 1 albuterol sulfate 90 mcg/actuation HFA aerosol inhaler 2 puff INHALATION 6XD PRN (Reason: shortness of breath or wheezing) Qty: 8.5 RF: 1 Excedrin Migraine 250-250-65 mg Tablet 4 - 10 tab PO PRN RF: 0 Discharge Orders: Discharge ED (Routine); Ordered 11/07/20 Ordered By: Jj Wheatley Referrals: Ngoc Gomez DO [Primary Care Provider] - Discharge Diet: Clear Liquid Discharge Activity: Increase activity as tolerated Patient Instructions: Abdominal Pain (ED), Opioid Safety Coding Level of Care Code ED Choir Member for Chg Fwd Exam Comprehensive
[2020-11-07] MEDS: iohexol 300 mg/mL 100 mL Btl IV (07:58)
[2020-11-07] MEDS: ondansetron 2 mg/ML SDV 2 mL 4 MG IVP (08:00)
[2020-11-07] MEDS: sodium chloride 0.9% 1,000 ML 999 ML IV (08:00)
[2020-11-07 08:01] VITALS: RESP 18
[2020-11-07] MEDS: morphine 4 mg/mL SDV 1 mL IVP ×2 (08:01→08:59)
[2020-11-07 08:21] LABS: Basophils # 0.1 10^3/uL (0.0-0.1); Basophils % 0.6 %; Eosinophils # 0.4 10^3/uL (0.0-0.8); Eosinophils % 3.8 %; Hematocrit 49.9 % (42.0-52.0); Hemoglobin 16.7 g/dL (11.7-16.6); Lymphocytes # 3.2 10^3/uL (0.8-4.8); Lymphocytes % 32.7 %; Mean Corpuscular HGB Conc 33.5 g/dL (30.0-36.0); Mean Corpuscular Hemoglobin 29.5 pg (28.0-34.0); Monocytes # 0.6 10^3/uL (0.2-0.9); Monocytes % 5.7 %; Neutrophils # 5.55 10^3/uL (1.8-7.7); Neutrophils % 56.8 %; Nucleated Red Blood Cells % 0 %; Platelet Count 377 10^3/cmm (130-400); Red Blood Count 5.67 10^6/uL (4.1-5.3); Red Cell Distribution Width 13.6 % (12.1-15.1); White Blood Count 9.8 10^3/uL (4.0-10.0)
[2020-11-07 08:35] LABS: Lactic Sepsis W/Reflex 2.5 mmol/L (0.5-2.2)
[2020-11-07 08:36] LABS: Alanine Aminotransferase 31 U/L (0-41); Albumin Level 4.3 g/dL (3.5-5.2); Alkaline Phosphatase 96 IU/L (40-130); Anion Gap 14.9 (5-19); Aspartate Amino Transferase 27 U/L (0-40); Blood Urea Nitrogen 6 mg/dL (6-20); Calcium 9.3 mg/dL (8.5-10.5); Carbon Dioxide 22 mmol/L (22-29); Chloride 101 mmol/L (98-107); Globulin 2.9 g/dL (1.3-4.6); Glucose 107 mg/dL (65-115); Lipase 18 U/L (13-60); Osmolality Calculated 276 mOsm/kg (285-295); Potassium 3.9 mmol/L (3.5-5.1); Sodium 134 mmol/L (136-145); Total Bilirubin 0.3 mg/dL (0.15-1.2); Total Protein 7.2 g/dL (6.6-8.7)
[2020-11-07 08:59] VITALS: RESP 18
[2020-11-07 09:00] LABS: Add Urine Microscopic? NO
[2020-11-07 09:21] LABS: Bilirubin Urine Neg (Negative); Blood Urine Neg (Negative); Glucose Urine UA Norm (Normal); Ketones Urine Negative (Negative); Leukocyte Esterase Urine Negative (Negative); Nitrate Urine Negative (Negative); Protein Urine Neg (Negative); Sulfosalicylic Acid Urine Negative (Negative); Urine Appearance Clear (CLEAR); Urine Color Straw (Yellow); Urobilinogen Urine Norm (Negative); pH Urine 8 (5-7)
[2020-11-07 09:47] VITALS: BP 157/96; PULSE 68; RESP 16; O2SAT 97
[2020-11-07 10:04] LABS: Reflex Lactate Order REFLEX LACTIC ORDERD
--- NOTE | 2020-11-09 10:15 | DCPLANNER ---
commissary manager had message to schedule a follow up appointment for patient with primary care physician, Dr. Gomez, and make a referral to general surgery for patient. commissary manager called [facility] Family Medicine, spoke with Myriam, a follow up appointment was scheduled for October at 11:[address] Gomez. commissary manager called patient with appointment information, patient stated that he would attend appointment. commissary manager also emailed patients information to both Fadumo, and Kindra at [facility] General Surgery. Patients information will be printed and reviewed. Clinic will call patient with appointment information.
--- NOTE | 2020-11-11 07:30 | DCPLANNER ---
Patient has a follow up appointment scheduled for Friday, November 20, 2020 at 10:[address] Lind. Clinic will call patient with appointment information.
--- NOTE | 2020-12-02 10:18 | DCPLANNER ---
Patient had a follow up appointment scheduled for 11.12.[address] Gomez for primary care to establish care - patient did attend appointment. Patient had a follow up appointment with [facility] general surgery - patient did attend appointment.
== END 2020-11-07 09:58 | disposition home or self-care (01) ==
PROVIDERS: Emergency Provider Family Medicine; PCP Family Medicine
DX: R10.9 Unspecified abdominal pain (principal); F17.210 Nicotine dependence, cigarettes, uncomplicated
CPT/HCPCS: 74177; 80053; 81003; 83605; 83690; 85025; 96361; 96374; 96375; 96376; 99283; J2270; J2405; J7030; Q9967

== ENCOUNTER 2020-12-07 09:36 | Outpatient (CLI) | payer OTHER, SELFPAY ==
[2020-12-07] MEDS: iohexol 300 mg/mL 50 mL Btl PO (09:57)
[2020-12-07] MEDS: iohexol 300 mg/mL 100 mL Btl IV (10:56)
--- NOTE | 2020-12-07 11:00 | CT_ITS ---
WS: [id number] CT ABDOMEN PELVIS TECHNIQUE: Contrast-enhanced CT of the abdomen and pelvis with coronal and sagittal reformatted image s. CLINICAL INFORMATION: R10.9 - Unspecified abdominal pain COMPARISON: November 07, 2020 DLP: 940.[address] scans at [facility] use at least one of these dose optimization techniques: automat ed exposure control; mA and/or kV adjustment per patient size (includes targeted exams where dose is matched to clinical indication); or iterative reconstruction. FINDINGS: Diffuse fatty infiltration of the liver. Cholecystectomy clips. Normal GE junction. Lung bases are we ll aerated. Adrenal glands are normal. Normal renal parenchymal enhancement. No hydronephrosis. Brenda l spleen. Appendix is unchanged in appearance compared to November 07, 2020. No evidence of acute append icitis. A few prominent lymph nodes in the right lower quadrant can be seen with adenitis. No evidence of high-grade small or large bowel obstruction. No free fluid in the abdomen or pelvis. M ild lumbar curve. No abdominal or pelvic lymphadenopathy. CT/CT abdomen pelvis w con* [id number] IMPRESSION: 1. Diffuse fatty infiltration of the liver. 2. Prior cholecystectomy. 3. Appendix is unchanged in appearance compared to November 07, 2020. No evidence of acute appendicitis. A few prominent lymph nodes in the right lower quadrant can be seen with adenitis. 4. No hydronephrosis. Normal renal parenchymal enhancement. 5. Normal caliber abdominal aorta. 6. No free fluid in the abdomen or pelvis. 7. No abdominal or pelvic lymphadenopathy.
== END 2020-12-07 09:37 | disposition home or self-care (01) ==
PROVIDERS: PCP Family Medicine; Visit Provider Surgery
DX: R10.9 Unspecified abdominal pain (principal); K76.0 Fatty (change of) liver, not elsewhere classified; Z90.49 Acquired absence of other specified parts of digestive tract
CPT/HCPCS: 74177; Q9967

== ENCOUNTER 2020-12-09 11:03 | Day surgery (SDC) | payer OTHER, SELFPAY ==
[2020-12-08 17:26] VITALS: BMI 43.2
[2020-12-09] VITALS (8 sets, daily range): BP systolic 117–140; BP diastolic 81–101; PULSE 60–75; RESP 16–24; TEMP 36.2–36.8; O2SAT 95–100
--- NOTE | 2020-12-09 11:25 | W.PM.OPSUD ---
Surgery/Procedure H&P Update DATE OF PROCEDURE: December 09, 2020 DATE H&P PERFORMED: 12/08/20 H&P UPDATE INFORMATION: I have reviewed H&P completed within last 30 days, I have examined patient prior to procedure and No changes to prior documentation PREOP DIAGNOSIS: , Chronic appendicitis, Right lower quadrant pain PLANNED PROCEDURE: Operation Date: 12/09/20 14:35 Proposed Procedures p Laparoscopic Appendectomy [id number] k35.80(Not Applicable) - Miles Lind MD
[2020-12-09] MEDS: scopolamine 1.5 Patch 1 PATCH TRANSDERMA (12:08)
--- NOTE | 2020-12-09 12:50 | P.ANESASSM_ITS ---
Pre-Anesthetic Assessment Pre-Anesthetic Assessment: Height/Weight: Height 1.6 m Weight 110.677 kg Temp Pulse Resp BP Pulse Ox 98.2 F 75 18 139/91 98 12/09/20 11:28 12/09/20 11:28 12/09/20 11:28 12/09/20 11:28 12/09/20 11:28 Preop Diagnosis: , Chronic appendicitis, Right lower quadrant pain Proposed Procedure: Operation Date: 12/09/20 14:35 Proposed Procedures p Laparoscopic Appendectomy 80383 [id number](Not Applicable) - Miles Lind MD Was Beta Ishmael taken within 24 hours: N/A Was Clonidine taken within 24 hours: N/A Last intake: Intake Last Liquid Date 12/09/20 Last Liquid Time 08:30 Last Solid Date 12/08/20 Last Solid Time 20:00 Social: Social History: Tobacco and No alcohol Exam: Pre-Anes Outpt Exam: alert, oriented x 3 and regular rate & rhythm Airway: Submandibular: WNL Cervical ROM: WNL MP: 2 Dentition: Chipped Pulmonary: Pulmonary: Asthma and COPD GI: GI: GERD Metabolic: Metabolic: Morbid obesity Musc/skel: Comments: chronic pain Anesthetic Plan: ASA status: 3 Anesthesia: General Risk of > 500 ml blood loss (7ml/kg in children): No PFSH Anesthesia PFSH: Medical History Asthma Chronic low back pain Chronic migraine Diverticulosis Surgical History Anal warts Excision x 1 H/O circumcision Status post laparoscopic cholecystectomy (05/13/20) Family History Mother Cancer lung Father Cancer lung, colon Family/Other Cancer cousin, thyroid cancer Other CAD (coronary artery disease) Chronic kidney disease (CKD) Diabetes Denies family history of Anesthesia complication Bleeding disorder Social History Smoking and tobacco status: current every day smoker cigarettes Packs smoked per day: 0.75 Years cigarettes smoked: 10 Second hand smoke exposure: Yes Smoking risk assessment/counseling performed?: Yes Alcohol intake: never Counseling given: No Counseling given: No Lives independently: Yes Household members: none Marital status: Single Current occupational status: employed History of recent travel: Yes ([place]) Out of state: No Current gender identity: Male Data Anesthesia Cardiac Studies: No Data to Display
[2020-12-09] MEDS: piperacillin-tazobactam 3.375 GM in sodium chloride 0.9% (plus) 50 ML IV (12:55)
--- NOTE | 2020-12-09 14:02 | P.OP_ITS ---
Operative Report Date of procedure: December 09, 2020 Pre-op Diagnosis: 1. Right lower quadrant pain/tenderness, nausea and vomiting 2. Distended appendix on CT scan Post-op Findings: Chronic appendicitis Procedure Done: Laparoscopic appendectomy Specimens removed/disposition: Appendix Surgeon: Miles Lind Anesthesia: General Condition: stable Disposition: PACU Procedure: The patient was taken to the Operating Room and intubated under general anesthesia after antibiotic had been administered. Using a 15 blade, a 1-cm infraumbilical incision was made and using open Cornell technique, the perit fajardo cavity was entered. A 12mm port with balloon was placed and 14 mm of pneumoperitoneum was created and 10-mm 30 degree scope was introduced. Two separate 5mm ports were placed in the left and right lower quadrant under direct visualization. The appendix was noted in the right lower quadrant and appeared inflamed, distended with thickened mesoappendix.the small bowel was examined from the ligament of Treitz to the cecum and there were no other abnormalities noted. The right, left colon, transverse colon and sigmoid colon appeared normal. Using [place] forceps, an opening was made in the mesoappendix near the base of the appendix. An Endo KAYLA stapler 45mm long 3.5mm blue load was introduced to divide the appendix at it's base. Using electrocautery, the mesoappendix including the appendicular artery was divided. There was some bleeding from the mesoappendix which was eventually controlled with 10 mm clip. There was no bleeding noted and the staple line appeared intact. The right lower quadrant was irrigated with saline and an EndoCatch bag was introduced to remove the appendix. All three ports were removed under direct visualization and there was no bleeding noted on the port sites. 10 cc of 0.5% Marcaine was infiltrated at the port sites. The fascia at the umbilical port was closed using figure of eight 0-Vicryl sutures and subcutaneous tissue was approximated using 3-0 Vicryl and skin at all 3 port sites was closed using 4-0 Monocryl and Dermabond.
--- NOTE | 2020-12-09 14:56 | ANE.PACU2 ---
Inpatient post-anesthesia follow up: Airway intact: Yes Vital signs: Temperature 97.9 F Pulse Rate 60 Respiratory Rate 16 Blood Pressure 140/101 Pulse Oximetry 96 Oxygen Delivery Me thod Room Air Oxygen Flow Rate 8 Fraction of Inspir ed Oxygen Hydration adequate: Yes Nausea and vomiting: No Pain level: 2 Mental status: Baseline
--- NOTE | 2020-12-09 15:03 | SUR.PHASEII ---
SCOPOLAMINE PATCH DISCONTINUED.
[2020-12-09] MEDS: ondansetron 2 mg/ML SDV 2 mL 4 MG IVP (15:11)
== END 2020-12-09 16:05 | disposition home or self-care (01) ==
PROVIDERS: PCP Family Medicine; Visit Provider Surgery
PROC: 0DTJ4ZZ Resection of Appendix, Percutaneous Endoscopic Approach (ICD-10-PCS; CPT 44970; principal; 2020-12-09 14:15)
DX: K35.80 Unspecified acute appendicitis (principal); J44.9 Chronic obstructive pulmonary disease, unspecified; K21.9 Gastro-esophageal reflux disease without esophagitis; E66.01 Morbid (severe) obesity due to excess calories; Z68.41 Body mass index [BMI] 40.0-44.9, adult; G89.29 Other chronic pain; M54.5 Low back pain; F17.210 Nicotine dependence, cigarettes, uncomplicated; Z79.82 Long term (current) use of aspirin; Z79.891 Long term (current) use of opiate analgesic
CPT/HCPCS: 44970; 88304; J1100; J1885; J2250; J2405; J2543; J2704; J2710; J3010; J3490; J3535

== ENCOUNTER 2021-01-01 09:33 | Outpatient (CLI) | payer OTHER, SELFPAY ==
[2021-01-01 10:18] LABS: Basophils # 0.1 10^3/uL (0.0-0.1); Basophils % 0.6 %; Eosinophils # 0.3 10^3/uL (0.0-0.8); Eosinophils % 3.9 %; Hematocrit 47.4 % (42.0-52.0); Hemoglobin 15.8 g/dL (11.7-16.6); Lymphocytes # 2.7 10^3/uL (0.8-4.8); Lymphocytes % 33.1 %; Mean Corpuscular HGB Conc 33.3 g/dL (30.0-36.0); Mean Corpuscular Hemoglobin 29.5 pg (28.0-34.0); Mean Corpuscular Volume 88.6 fL (80-94); Mean Platelet Volume 8.6 fL (7.4-10.4); Monocytes # 0.4 10^3/uL (0.2-0.9); Monocytes % 4.5 %; Neutrophils # 4.71 10^3/uL (1.8-7.7); Neutrophils % 57.7 %; Nucleated Red Blood Cells % 0 %; Platelet Count 311 10^3/cmm (130-400); Red Blood Count 5.35 10^6/uL (4.1-5.3); Red Cell Distribution Width 13.3 % (12.1-15.1); White Blood Count 8.2 10^3/uL (4.0-10.0)
[2021-01-01 10:30] LABS: Alanine Aminotransferase 28 U/L (0-41); Albumin Level 4.3 g/dL (3.5-5.2); Alkaline Phosphatase 86 IU/L (40-130); Anion Gap 11.3 (5-19); Aspartate Amino Transferase 21 U/L (0-40); Blood Urea Nitrogen 11 mg/dL (6-20); Calcium 9.2 mg/dL (8.5-10.5); Carbon Dioxide 26 mmol/L (22-29); Chloride 106 mmol/L (98-107); Globulin 2.5 g/dL (1.3-4.6); Glomerular Filtration Rate 127.6 mL/min (90-130); Glucose 93 mg/dL (65-115); Lipase 17 U/L (13-60); Osmolality Calculated 287 mOsm/kg (285-295); Potassium 4.3 mmol/L (3.5-5.1); Sodium 139 mmol/L (136-145); Total Bilirubin 0.3 mg/dL (0.15-1.2); Total Protein 6.8 g/dL (6.6-8.7)
--- NOTE | 2021-01-01 12:30 | XR_ITS ---
WS: [id number] Acute abdomen series, 01/01/2021 Clinical Data: R10.9 - Unspecified abdominal pain Comparison: None. Findings: In the chest there are no nodules, masses or effusions. The heart is normal. The pulmonary vascularity is not increased. No free air is seen beneath the diaphragms. No abnormal intra-abdominal masses or calcifications are seen. There are clips in the right upper quadrant from a cholecystectomy. There is a right lower quad rant clip possibly from an appendectomy. XR/XR acute abdomen series [id number] Impression: Negative acute abdomen series.
== END 2021-01-01 09:34 | disposition home or self-care (01) ==
PROVIDERS: PCP Family Medicine; Visit Provider Surgery
DX: R10.9 Unspecified abdominal pain (principal)
CPT/HCPCS: 36415; 74022; 80053; 83690; 85025

== ENCOUNTER 2021-01-14 09:35 | Outpatient (CLI) | payer OTHER, SELFPAY ==
[2021-01-14] MEDS: iohexol 300 mg/mL 50 mL Btl PO (09:44)
--- NOTE | 2021-01-14 11:00 | CT_ITS ---
WS: [id number] CT scan of the abdomen and pelvis with Oral and IV contrast. Additional two-dimensional coronal and s agittal reconstruction was performed. 01/14/2021 Clinical Data: R10.9 - Unspecified abdominal pain Comparison: CT abdomen and pelvis, 12/07/2020. DLP: 1148.[address] scans at [facility] use at least one of these dose optimization techniques: automat ed exposure control; mA and/or kV adjustment per patient size (includes targeted exams where dose is matched to clinical indication); or iterative reconstruction. Findings: The lower lungs show no nodules, masses or effusions. The liver, spleen, adrenal glands and pancreas are normal. There are clips in the gallbladder fossa from a cholecystectomy. The kidneys show equal bilateral contrast excretion with no cyst or masses. N o hydronephrosis or renal calculi are noted. The abdominal aorta is normal in size. No appendicitis or diverticulitis is seen. Oral contrast is in the stomach, small bowel and ascending colon. No abscess, adenopathy, ascites, mass, obstruction or free air is seen. The bladder is unrema rkable. No inguinal hernia is seen. The bones of the lower thorax, lumbar spine, pelvis, and hips are normal. CT/CT abdomen pelvis w con* [id number] Impression: 1. Negative for acute intra-abdominal or pelvic abnormalities. 2. Cholecystectomy.
[2021-01-14] MEDS: iohexol 300 mg/mL 100 mL Btl IV (11:46)
== END 2021-01-14 09:36 | disposition home or self-care (01) ==
PROVIDERS: PCP Family Medicine; Visit Provider Surgery
DX: G43.711 Chronic migraine without aura, intractable, with status migrainosus (principal); R10.9 Unspecified abdominal pain; F17.210 Nicotine dependence, cigarettes, uncomplicated
CPT/HCPCS: 74177; 99204; Q9967

== ENCOUNTER → 2021-02-15 10:52 | Outpatient (BNVA) | payer OTHER, SELFPAY | PROVIDERS: PCP Family Medicine; Visit Provider Family Medicine | DX: E66.01 Morbid (severe) obesity due to excess calories (principal); Z91.018 Allergy to other foods | CPT/HCPCS: 83036; 84443 ==

== ENCOUNTER → 2021-05-05 14:50 | Outpatient (BNVA) | payer OTHER, SELFPAY | PROVIDERS: PCP Family Medicine; Visit Provider Registered Nurse Neonatal Intensive Care | DX: Z20.822 Contact with and (suspected) exposure to COVID-19 (principal) | CPT/HCPCS: 87635 ==

== ENCOUNTER 2021-05-11 10:50 | Outpatient (CLI) | payer OTHER, SELFPAY ==
[2021-05-11 11:20] LABS: Basophils # 0.1 10^3/uL (0.0-0.1); Basophils % 0.7 %; Eosinophils # 0.4 10^3/uL (0.0-0.8); Eosinophils % 4.6 %; Hematocrit 50.4 % (42.0-52.0); Hemoglobin 16.7 g/dL (11.7-16.6); Lymphocytes % 32.9 %; Mean Corpuscular HGB Conc 33.1 g/dL (30.0-36.0); Mean Corpuscular Hemoglobin 29.1 pg (28.0-34.0); Mean Corpuscular Volume 87.8 fl (80-94); Mean Platelet Volume 8.9 fL (7.4-10.4); Monocytes # 0.6 10^3/uL (0.2-0.9); Neutrophils % 55.6 %; Nucleated Red Blood Cells % 0 %; Platelet Count 300 10^3/cmm (130-400); Red Blood Count 5.74 10^6/uL (4.1-5.3); Red Cell Distribution Width 13.8 % (12.1-15.1); White Blood Count 9.2 10^3/uL (4.0-10.0)
[2021-05-11 11:50] LABS: Alanine Aminotransferase 33 U/L (0-41); Albumin Level 4.1 g/dL (3.5-5.2); Alkaline Phosphatase 83 IU/L (40-130); Anion Gap 13.1 (5-19); Aspartate Amino Transferase 28 U/L (0-40); Blood Urea Nitrogen 5 mg/dL (6-20); Carbon Dioxide 25 mmol/L (22-29); Chloride 104 mmol/L (98-107); Globulin 2.6 g/dL (1.3-4.6); Glomerular Filtration Rate 109.4 mL/min (90-130); Glucose 95 mg/dL (65-115); Lipase 16 U/L (13-60); Osmolality Calculated 283 mOsm/kg (285-295); Potassium 4.1 mmol/L (3.5-5.1); Sodium 138 mmol/L (136-145); Total Bilirubin 0.5 mg/dL (0.15-1.2); Total Protein 6.7 g/dL (6.6-8.7)
== END 2021-05-11 10:51 | disposition home or self-care (01) ==
LOC: LAB 10:56
PROVIDERS: PCP Family Medicine; Visit Provider Surgery
DX: R19.8 Other specified symptoms and signs involving the digestive system and abdomen (principal)
CPT/HCPCS: 36415; 80053; 83690; 85025

== ENCOUNTER → 2021-05-17 15:54 | Outpatient (BNVA) | payer OTHER, SELFPAY | PROVIDERS: PCP Family Medicine; Visit Provider Family Medicine | DX: L81.9 Disorder of pigmentation, unspecified (principal) | CPT/HCPCS: 88305 ==

== ENCOUNTER → 2021-07-09 09:12 | Outpatient (BNVA) | payer OTHER, SELFPAY | PROVIDERS: PCP Family Medicine; Visit Provider Family Medicine | DX: Z13.6 Encounter for screening for cardiovascular disorders (principal); Z91.018 Allergy to other foods | CPT/HCPCS: 80061 ==

== ENCOUNTER → 2021-08-09 11:41 | Outpatient (BNVA) | payer OTHER, SELFPAY | PROVIDERS: PCP Family Medicine; Visit Provider Nurse Practitioner Family | DX: Z20.822 Contact with and (suspected) exposure to COVID-19 (principal) | CPT/HCPCS: 87635 ==

== ENCOUNTER → 2021-08-12 09:07 | Outpatient (BNVA) | payer OTHER, SELFPAY | PROVIDERS: PCP Family Medicine; Visit Provider Family Medicine | DX: R35.0 Frequency of micturition (principal) | CPT/HCPCS: 81000; 83036 ==

== ENCOUNTER 2021-10-22 16:41 | Emergency (ER) | payer SELFPAY ==
[2021-10-22 16:52] VITALS: BP 140/80; PULSE 98; RESP 20; TEMP 37; O2SAT 98; BMI 40.7
--- NOTE | 2021-10-22 17:22 | XRR_ITS ---
PROCEDURE INFORMATION: Exam: XR Chest Exam date and time: 10/22/2021 5:22 PM Age: 35 years old Clinical indication: Cough TECHNIQUE: Imaging protocol: XR of the chest. Views: 1 view. COMPARISON: CR XR chest 1V portable [id number] 02/25/2020 8:55 AM FINDINGS: Lungs: Mild left lower lobe airspace disease suspicious for pneumonia. Pleural spaces: No pleural effusion. No pneumothorax. Heart/Mediastinum: The cardiac silhouette and mediastinal contours are unremarkable. Bones/joints: Stable mild scoliosis in the visualized spine. Organs: Surgical clips in the right upper quadrant, consistent with a previous cholecystectomy. Findings are stable. XR/XR chest 1V portable [id number] IMPRESSION: 1. Mild left lower lobe airspace disease suspicious for pneumonia. Recommend followup chest imaging to insure resolution of these findings. 2. Incidental/nonacute findings are listed in the report.
--- NOTE | 2021-10-22 17:26 | W.ED.URI ---
HPI - URI/Sore Throat General: Chief Complaint: Upper Respiratory Infection Stated Complaint: Coughing up blood, thick like substance Time Seen by Provider: 10/22/21 17:19 History of Present Illness: Patient states that he has been sick for about 3 days had some sinus drainage now starting to cough and is coughing up some thick sputum. Said last time he coughed up had some blood in his sputum. Denies any fever chills. Denies any shortness of breath. Associated symptoms: Deny abdominal pain, chills, chest pain, fever(s), headache(s), nausea or vomiting Review of Systems Const: Denies: fever(s), chills or body aches Eyes: Denies: eye discomfort ENMT: Reports: nasal discharge; Denies: throat pain Card: Denies: chest pain Resp: Reports: productive cough; Denies: dyspnea GI: Denies: abdominal pain, nausea or vomiting Skin/Breast: Denies: rash Neuro: Denies: headache(s) Psych: Denies: depression or suicidal ideation PFSH ED PFSH: Medical History Asthma Chronic low back pain Chronic migraine Diverticulosis Surgical History Anal warts Excision x 1 H/O circumcision S/P laparoscopic appendectomy (12/09/20) Status post laparoscopic cholecystectomy (05/13/20) Family History Mother Cancer lung Father Cancer lung, colon Family/Other Cancer cousin, thyroid cancer Other CAD (coronary artery disease) Chronic kidney disease (CKD) Diabetes Denies family history of Anesthesia complication Bleeding disorder Social History Smoking and tobacco status: current every day smoker cigarettes Packs smoked per day: 1 Years cigarettes smoked: 10 Second hand smoke exposure: Yes Smoking risk assessment/counseling performed?: Yes Alcohol intake: never Counseling given: No Counseling given: No Lives independently: Yes Household members: none Marital status: Single Current occupational status: employed History of recent travel: No Current gender identity: Male Physical Exam Const: COMMON NORMALS: no acute distress, patient oriented x3 and alert HENMT: COMMON NORMALS: normocephalic and external ears normal HEAD & SCALP: normocephalic EXTERNAL EAR: Yes external ears normal Eye: COMMON NORMALS: EOMs intact bilaterally Neck/C-Spine: COMMON NORMALS: no JVD Resp: COMMON NORMALS: normal respiratory effort and No use of accessory muscles Cardio: COMMON NORMALS: no JVD GI: INSPECTION: Yes normal to inspection Extremity: COMMON NORMALS: normal to inspection and full ROM Neuro: COMMON NORMALS: patient oriented x3 SENSORIUM/ORIENTATION: Yes alert Psych: COMMON NORMALS: mental status grossly normal Skin: COMMON NORMALS: no rashes or lesions noted GENERAL SKIN EXAM: no rashes or lesions noted Course Vital Signs: Vital signs: Vital Signs Temperature 98.6 F 10/22/21 16:52 Pulse Rate 98 10/22/21 16:52 Respiratory Rate 20 H 10/22/21 16:52 Blood Pressure 140/80 10/22/21 16:52 Pulse Oximetry 98 10/22/21 16:52 MDM - URI/Sore Throat Medical Decision Making Patient presents with productive cough. X-ray reveals begins of pneumonia. Patient prescribed inhaler steroid and antibiotic and requested follow-up with primary care provider in week or 2 to have jesús-ray the lungs done. Patient given note to be off work. Lab Data Radiology Impressions Chest X-Ray 10/22/21 17:22 IMPRESSION: 1. Mild left lower lobe airspace disease suspicious for pneumonia. Recommend followup chest imaging to insure resolution of these findings. 2. Incidental/nonacute findings are listed in the report. Discharge Plan Discharge Patient Disposition: Home Clinical Impression: Bronchitis Pneumonia Qualifiers: Pneumonia type: due to unspecified organism Laterality: left Lung location: lower lobe of lung Qualified Code(s): J18.9 - Pneumonia, unspecified organism Condition: Stable Prescriptions: New Zithromax Z-Zeyad 250 mg tablet See Rx Instructions .ROUTE .COMPLEX Qty: 6 0RF Rx Instructions: take 500 mg today (day 1), then 250 mg for 4 days (days 2-5) prednisone 20 mg tablet 20 mg PO DAILY Qty: 7 0RF ProAir HFA 90 mcg/actuation HFA aerosol inhaler 2 inh inhalation Q4H PRN (Reason: shortness of breath or wheezing) Qty: 6.7 0RF No Action Trelegy Ellipta 100-62.5-25 mcg blister with device 1 inh inhalation DAILY 30 Days Qty: 60 4RF albuterol sulfate 90 mcg/actuation HFA aerosol inhaler 2 puff INHALATION Q4H PRN (Reason: shortness of breath or wheezing) Qty: 8.5 6RF Rx Instructions: 340 B dicyclomine 10 mg capsule 10 mg PO TID PRN (Reason: IBS) 30 Days Qty: 90 0RF lidocaine-epinephrine [Xylocaine with Epinephrine] 2 %-1:100,000 solution 20 ml SUBCUT ONCE Qty: 4 0RF silver nitrate applicators 75-25 % stick 1 applic topical ONCE Qty: 2 0RF epinephrine [EpiPen 2-Zeyad] 0.3 mg/0.3 mL auto-injector 0.3 mg IM Q15M PRN (Reason: anaphylaxis) Qty: 2 1RF Rx Instructions: do not exceed 3 doses per episode 340 B buspirone 5 mg tablet 5 mg PO TID Qty: 90 2RF ketorolac 30 mg/mL solution 30 mg IM ONCE Qty: 1 0RF Excedrin Migraine 250-250-65 mg Tablet 4 - 10 tab PO PRN 0RF Discharge Orders: Discharge ED (Routine); Ordered 10/22/21 Ordered By: Nahid Call Referrals: Ngoc Gomez DO [Primary Care Provider] - Discharge Diet: Usual diet Discharge Activity: Increase activity as tolerated Patient Instructions: Acute Bronchitis (ED), Pneumonia (ED) Activity Restrictions/Additional Instructions: Follow-up with medical provider as directed. Take medications as prescribed. Return to the ER or your medical provider if condition worsens. Please read and understand discharge instructions. If any questions ask please. Follow-up with your primary care provider in 1 to 2 weeks and have another chest x-ray done to make sure that lungs have cleared up. 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
== END 2021-10-22 18:09 | disposition home or self-care (01) ==
PROVIDERS: Emergency Provider Nurse Practitioner Family; PCP Family Medicine
DX: J18.9 Pneumonia, unspecified organism (principal); J40 Bronchitis, not specified as acute or chronic; F17.210 Nicotine dependence, cigarettes, uncomplicated
CPT/HCPCS: 71045; 99282

== ENCOUNTER 2021-10-25 13:17 | Emergency (ER) | payer SELFPAY ==
[2021-10-25 13:47] VITALS: BP 150/81; PULSE 86; RESP 16; TEMP 36.9; O2SAT 97; BMI 38.9
[2021-10-25 14:24] VITALS: BP 163/94; PULSE 100; RESP 14; O2SAT 95
--- NOTE | 2021-10-25 14:32 | XRR_ITS ---
PROCEDURE INFORMATION: Exam: XR Chest Exam date and time: 10/25/2021 2:32 PM Age: 35 years old Clinical indication: Pain; Shortness of breath; Angina pectoris; Patient HX: Cp, SOB, and skin shaking; Additional info: Chest pain TECHNIQUE: Imaging protocol: XR of the chest. Views: 1 view. COMPARISON: CR (CHEST, ) 10/22/2021 5:27 PM FINDINGS: Lungs: Unremarkable. No consolidation. Pleural spaces: Unremarkable. No pleural effusion. No pneumothorax. Heart/Mediastinum: Unremarkable. No cardiomegaly. Bones/joints: Unremarkable. XR/XR chest 1V portable [id number] IMPRESSION: No acute findings.
[2021-10-25 14:34] VITALS: BP 163/94; PULSE 99; RESP 14; O2SAT 94
--- NOTE | 2021-10-25 14:49 | ECG_ITS ---
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 Measurements Intervals [place] Rate: 103 P: 40 MT: 138 QRS: 66 QRSD: 92 T: 32 QT: 320 QTc: 420 Interpretive Statements SINUS TACHYCARDIA ABNORMAL RHYTHM ECG Compared to ECG 02/25/2020 09:00:54 Sinus rhythm no longer present Electronically Signed On 10-25-2021 17:25:02 BRICK POINTER by Salvador Oneil M.D. [email or web address]
--- NOTE | 2021-10-25 14:50 | W.ED.GENADLT ---
HPI - General Adult General: Chief complaint: General Medical Stated complaint: Breathing difficulty, bronchitis Time Seen by Provider: 10/25/21 14:20 Source: patient Mode of arrival: ambulatory Limitations: no limitations History of Present Illness: Patient is a 35-year-old male who presents to ED today for reevaluation following upper respiratory infection-like symptoms. Patient tells me approximately 4 days ago he began having cough and congestion. He was seen at our facility and diagnosed with bronchitis/early pneumonia. Patient was placed on azithromycin and prednisone. Patient states he is continuing to cough and does not feel like he is improving. No fevers. He does have pain in his chest with coughing and feels like his lungs are sore . Patient does not feel overly short of breath unless he exerts himself but states some of this might be chronic. He is an everyday smoker. Onset (ago): day(s) Exacerbating factors: other (coughing ) Associated symptoms: Reports chest pain and dyspnea; Deny headache(s), malaise, nausea, rash, palpitations, syncope or vomiting Treatments prior to arrival: other (abx/steroids) Review of Systems Const: Denies: fever(s), chills, body aches, fatigue or malaise Eyes: Denies: change in vision or blurry vision ENMT: Denies: throat pain, odynophagia, nasal discharge or nasal congestion Card: Reports: chest pain and dyspnea on exertion; Denies: palpitations, irregular heart rhythm, edema, swelling of feet/ankles, lightheadedness, syncope or pre-syncope Resp: Reports: dyspnea, productive cough and chest congestion; Denies: wheezing or hemoptysis GI: Denies: abdominal pain, nausea, vomiting or diarrhea Musc: Denies: neck pain or back pain Skin/Breast: Denies: rash Neuro: Denies: headache(s), numbness in extremities, weakness in extremities or sensory changes PFSH ED PFSH: Medical History Asthma Chronic low back pain Chronic migraine Diverticulosis Surgical History Anal warts Excision x 1 H/O circumcision S/P laparoscopic appendectomy (12/09/20) Status post laparoscopic cholecystectomy (05/13/20) Family History Mother Cancer lung Father Cancer lung, colon Family/Other Cancer cousin, thyroid cancer Other CAD (coronary artery disease) Chronic kidney disease (CKD) Diabetes Denies family history of Anesthesia complication Bleeding disorder Social History Smoking and tobacco status: current every day smoker cigarettes Packs smoked per day: 1 Years cigarettes smoked: 10 Second hand smoke exposure: Yes Smoking risk assessment/counseling performed?: Yes Alcohol intake: never Counseling given: No Counseling given: No Lives independently: Yes Household members: none Marital status: Single Current occupational status: employed History of recent travel: No Current gender identity: Male Physical Exam Const: COMMON NORMALS: no acute distress, patient oriented x3, no limitations and alert GENERAL APPEARANCE: cooperative NUTRITIONAL APPEARANCE: obese ORIENTATION/CONSCIOUSNESS: Yes awake, Yes oriented to person, Yes oriented to place and Yes oriented to time HENMT: COMMON NORMALS: normocephalic and atraumatic HEAD & SCALP: normal to inspection, normocephalic and atraumatic FACE & SINUS: normal facial exam Neck/C-Spine: COMMON NORMALS: no lymphadenopathy, supple, no JVD and No carotid bruits Chest: COMMONS NORMALS: normal inspection of the chest OTHER: mild TTP L anterior chest wall Resp: COMMON NORMALS: normal respiratory effort and clear to auscultation bilaterally AUSCULTATION: clear to auscultation bilaterally Cardio: COMMON NORMALS: no JVD, regular rate and regular rhythm RATE: regular rate RHYTHM: regular rhythm GI: COMMON NORMALS: Normal to inspection, nondistended, normoactive bowel sounds present, Soft to palpation, non-tender, No hepatosplenomegaly present and no masses PALPATION: Yes Soft to palpation and Yes No hepatosplenomegaly present Extremity: COMMON NORMALS: capillary refill normal, no joint enlargement, no clubbing, cyanosis or edema, no calf tenderness and no pedal edema Neuro: COMMON NORMALS: patient oriented x3 SENSORIUM/ORIENTATION: Yes alert, Yes oriented to person, Yes oriented to place and Yes oriented to time Course Vital Signs: Vital signs: Vital Signs Temperature 98.4 F 10/25/21 13:47 Pulse Rate 89 10/25/21 15:36 Respiratory Rate 16 10/25/21 15:36 Blood Pressure 146/111 10/25/21 15:36 Pulse Oximetry 96 10/25/21 15:36 MDM - General Adult Medical Decision Making Patient appears in no acute distress. His vital signs are stable. Lab work is not overly unremarkable. He has a normal procalcitonin. CXR is normal today. [facility] PCR COVID was obtained today as it was not obtained on his last visit. Recommend he continue his medications and continue to treat conservatively at home. Discussed quarantine precautions if his COVID comes back positive. Return to ED precautions verbally given to patient. Lab Data : 10/25/21 14:30 10/25/21 14:30 Radiology Impressions Chest X-Ray 10/25/21 14:32 IMPRESSION: No acute findings. Laboratory Results WBC 11.8 10^3/uL (4.0-10.0) H 10/25/21 14:30 RBC 5.67 10^6/uL (4.1-5.3) H 10/25/21 14:30 Hgb 16.6 g/dL (11.7-16.6) 10/25/21 14:30 Hct 50.5 % (42.0-52.0) 10/25/21 14:30 MCV 89.1 fl (80-94) 10/25/21 14:30 MCH 29.3 pg (28.0-34.0) 10/25/21 14:30 MCHC 32.9 g/dL (30.0-36.0) 10/25/21 14:30 RDW 13.4 % (12.1-15.1) 10/25/21 14:30 Plt Count 356 10^3/cmm (130-400) 10/25/21 14:30 MPV 8.9 fL (7.4-10.4) 10/25/21 14:30 Neut % (Auto) 67.2 % 10/25/21 14:30 Lymph % (Auto) 28.7 % 10/25/21 14:30 [place] % (Auto) 3.3 % 10/25/21 14:30 Eos % (Auto) 0.2 % 10/25/21 14:30 Baso % (Auto) 0.3 % 10/25/21 14:30 Neut # (Auto) 7.95 10^3/uL (1.8-7.7) H 10/25/21 14:30 Lymph # (Auto) 3.4 10^3/uL (0.8-4.8) 10/25/21 14:30 [place] # (Auto) 0.4 10^3/uL (0.2-0.9) 10/25/21 14:30 Eos # (Auto) 0.0 10^3/uL (0.0-0.8) 10/25/21 14:30 Baso # (Auto) 0.0 10^3/uL (0.0-0.1) 10/25/21 14:30 Nucleated RBC % (auto) 0 % 10/25/21 14:30 Nucleated RBCs # 0.0 /100WBC 10/25/21 14:30 Sodium 136 mmol/L (136-145) 10/25/21 14:30 Potassium 4.5 mmol/L (3.5-5.1) 10/25/21 14:30 Chloride 100 mmol/L (98-107) 10/25/21 14:30 Carbon Dioxide 23 mmol/L (22-29) 10/25/21 14:30 Anion Gap 17.5 (5-19) 10/25/21 14:30 BUN 12 mg/dL (6-20) 10/25/21 14:30 Creatinine 0.8 mg/dL (0.7-1.2) 10/25/21 14:30 GFR Calculation 109.4 mL/min (90-130) 10/25/21 14:30 Glucose 145 mg/dL (65-115) H 10/25/21 14:30 Calculated Osmolality 284 mOsm/kg (285-295) L 10/25/21 14:30 Calcium 10.2 mg/dL (8.5-10.5) 10/25/21 14:30 Total Bilirubin 0.4 mg/dL (0.15-1.2) 10/25/21 14:30 AST 21 U/L (0-40) 10/25/21 14:30 ALT 25 U/L (0-41) 10/25/21 14:30 Alkaline Phosphatase 93 IU/L (40-130) 10/25/21 14:30 Total Protein 7.4 g/dL (6.6-8.7) 10/25/21 14:30 Albumin 4.4 g/dL (3.5-5.2) 10/25/21 14:30 Globulin 3.0 g/dL (1.3-4.6) 10/25/21 14:30 Procalcitonin 0.03 ng/mL (0-0.5) 10/25/21 14:30 Discharge Plan Discharge Patient Disposition: Home Clinical Impression: Bronchitis Condition: Stable Prescriptions: No Action Trelegy Ellipta 100-62.5-25 mcg blister with device 1 inh inhalation DAILY 30 Days Qty: 60 4RF albuterol sulfate 90 mcg/actuation HFA aerosol inhaler 2 puff INHALATION Q4H PRN (Reason: shortness of breath or wheezing) Qty: 8.5 6RF Rx Instructions: 340 B dicyclomine 10 mg capsule 10 mg PO TID PRN (Reason: IBS) 30 Days Qty: 90 0RF lidocaine-epinephrine [Xylocaine with Epinephrine] 2 %-1:100,000 solution 20 ml SUBCUT ONCE Qty: 4 0RF silver nitrate applicators 75-25 % stick 1 applic topical ONCE Qty: 2 0RF epinephrine [EpiPen 2-Zeyad] 0.3 mg/0.3 mL auto-injector 0.3 mg IM Q15M PRN (Reason: anaphylaxis) Qty: 2 1RF Rx Instructions: do not exceed 3 doses per episode 340 B buspirone 5 mg tablet 5 mg PO TID Qty: 90 2RF ketorolac 30 mg/mL solution 30 mg IM ONCE Qty: 1 0RF Excedrin Migraine 250-250-65 mg Tablet 4 - 10 tab PO PRN 0RF Zithromax Z-Zeyad 250 mg tablet See Rx Instructions .ROUTE .COMPLEX Qty: 6 0RF Rx Instructions: take 500 mg today (day 1), then 250 mg for 4 days (days 2-5) prednisone 20 mg tablet 20 mg PO DAILY Qty: 7 0RF ProAir HFA 90 mcg/actuation HFA aerosol inhaler 2 inh inhalation Q4H PRN (Reason: shortness of breath or wheezing) Qty: 6.7 0RF Discharge Orders: Discharge ED (Routine); Ordered 10/25/21 Ordered By: Aury Telles Referrals: Ngoc Gomez DO [Primary Care Provider] - Coding Level of Care Code ED Chief Lending Officer for Chg Fwd
[2021-10-25 15:00] LABS: Basophils % 0.3 %; Eosinophils % 0.2 %; Hematocrit 50.5 % (42.0-52.0); Hemoglobin 16.6 g/dL (11.7-16.6); Lymphocytes # 3.4 10^3/uL (0.8-4.8); Lymphocytes % 28.7 %; Mean Corpuscular HGB Conc 32.9 g/dL (30.0-36.0); Mean Corpuscular Hemoglobin 29.3 pg (28.0-34.0); Mean Corpuscular Volume 89.1 fl (80-94); Mean Platelet Volume 8.9 fL (7.4-10.4); Monocytes # 0.4 10^3/uL (0.2-0.9); Monocytes % 3.3 %; Neutrophils # 7.95 10^3/uL (1.8-7.7); Neutrophils % 67.2 %; Nucleated Red Blood Cells % 0 %; Platelet Count 356 10^3/cmm (130-400); Red Blood Count 5.67 10^6/uL (4.1-5.3); Red Cell Distribution Width 13.4 % (12.1-15.1); White Blood Count 11.8 10^3/uL (4.0-10.0)
[2021-10-25 15:10] VITALS: BP 146/111; PULSE 96; RESP 14; O2SAT 93
[2021-10-25 15:10] LABS: Alanine Aminotransferase 25 U/L (0-41); Albumin Level 4.4 g/dL (3.5-5.2); Alkaline Phosphatase 93 IU/L (40-130); Anion Gap 17.5 (5-19); Aspartate Amino Transferase 21 U/L (0-40); Blood Urea Nitrogen 12 mg/dL (6-20); Calcium 10.2 mg/dL (8.5-10.5); Carbon Dioxide 23 mmol/L (22-29); Chloride 100 mmol/L (98-107); Glomerular Filtration Rate 109.4 mL/min (90-130); Glucose 145 mg/dL (65-115); Osmolality Calculated 284 mOsm/kg (285-295); Potassium 4.5 mmol/L (3.5-5.1); Sodium 136 mmol/L (136-145); Total Bilirubin 0.4 mg/dL (0.15-1.2); Total Protein 7.4 g/dL (6.6-8.7)
[2021-10-25 15:17] LABS: Procalcitonin 0.03 ng/mL (0-0.5)
[2021-10-25 15:36] VITALS: BP 146/111; PULSE 89; RESP 16; O2SAT 96
[2021-10-26 12:33] LABS: Quest SARS-CoV-2 RNA NOT DETECTED (NOT DETECTED)
--- NOTE | 2021-10-26 16:31 | PC.NURSE ---
Informed pt of Negative COVID test
== END 2021-10-25 15:56 | disposition home or self-care (01) ==
PROVIDERS: Emergency Provider Physician Assistant; PCP Family Medicine
DX: J40 Bronchitis, not specified as acute or chronic (principal); F17.210 Nicotine dependence, cigarettes, uncomplicated; Z20.822 Contact with and (suspected) exposure to COVID-19
CPT/HCPCS: 71045; 80053; 84145; 85025; 87635; 93005; 99283

== ENCOUNTER → 2022-03-27 16:58 | Outpatient (BNVA) | payer SELFPAY | PROVIDERS: PCP Family Medicine; Visit Provider Family Medicine | DX: R50.9 Fever, unspecified (principal); R59.0 Localized enlarged lymph nodes; W57.XXXA Bitten or stung by nonvenomous insect and other nonvenomous arthropods, initial encounter; R19.8 Other specified symptoms and signs involving the digestive system and abdomen | CPT/HCPCS: 80053; 85025; 86618; 86666; 86757 ==

== ENCOUNTER 2022-06-19 14:35 | Emergency (ER) | payer SELFPAY ==
[2022-06-19 14:46] VITALS: BMI 41.1
[2022-06-19 14:49] VITALS: BP 135/80; PULSE 95; RESP 18; TEMP 36.4; O2SAT 97
--- NOTE | 2022-06-19 14:54 | ED_ITS ---
HPI - Back Pain/Injury General: Chief Complaint: Back Pain/Injury Stated Complaint: PAin in middle of back History of Present Illness: 36-year-old male patient comes in today for complaints of pain mid back and left ribs. Patient reports 3 days ago he was at work, [employer], when he slipped and twisted landing awkwardly on his right hip. Patient reports improvement in the hip and rib pain but has had increasing pain in the mid back. Patient reports home [id number] medications have been helping minimally with pain. Patient appears nontoxic. Patient does appear in moderate to severe pain. Associated symptoms: Deny fever(s) Review of Systems Const: Denies: fever(s) Card: Denies: chest pain Resp: Denies: dyspnea Musc: Reports: back pain and other (Left rib pain) [facility] ED PFSH: Medical History Asthma Chronic low back pain Chronic migraine Diverticulosis Surgical History Anal warts Excision x 1 H/O circumcision S/P laparoscopic appendectomy (12/09/20) Status post laparoscopic cholecystectomy (05/13/20) Family History Mother Cancer lung Father Cancer lung, colon Family/Other Cancer cousin, thyroid cancer Other CAD (coronary artery disease) Chronic kidney disease (CKD) Diabetes Denies family history of Anesthesia complication Bleeding disorder Social History Smoking and tobacco status: current every day smoker cigarettes Packs smoked per day: 1 Years cigarettes smoked: 10 Second hand smoke exposure: Yes Smoking risk assessment/counseling performed?: Yes Alcohol intake: never Counseling given: No Counseling given: No Lives independently: Yes Household members: none Marital status: Single Current occupational status: employed History of recent travel: No Current gender identity: Male Physical Exam Const: COMMON NORMALS: alert HENMT: COMMON NORMALS: atraumatic HEAD & SCALP: atraumatic Neck/C-Spine: COMMON NORMALS: full ROM Chest: CHEST: Yes tenderness (Left lateral ribs mid area) Resp: COMMON NORMALS: normal respiratory effort and clear to auscultation bilaterally AUSCULTATION: clear to auscultation bilaterally Cardio: COMMON NORMALS: regular rate and regular rhythm RATE: regular rate RHYTHM: regular rhythm GI: COMMON NORMALS: non-tender Back/Pelvis: THORACIC SPINE/UPPER BACK: Yes thoracic spinal tenderness (Mid to low thoracic spine) and Yes paraspinal muscle tenderness LUMBAR SPINE/LOWER BACK: No lumbar spinal tenderness and No paraspinal muscle tenderness Extremity: COMMON NORMALS: normal to inspection Neuro: SENSORIUM/ORIENTATION: Yes alert Skin: COMMON NORMALS: turgor normal GENERAL SKIN EXAM: turgor normal Course Vital Signs: Vital signs: Vital Signs Temperature 97.6 F 06/19/22 14:49 Pulse Rate 95 06/19/22 14:49 Respiratory Rate 18 06/19/22 14:49 Blood Pressure 135/80 06/19/22 14:49 Pulse Oximetry 97 06/19/22 14:49 Oxygen Delivery Me thod 06/19/22 14:49 MDM - Back Pain/Injury Medical Decision Making 36-year-old male patient comes in today with complaints of mid back pain and left rib pain. On exam patient has some tenderness in his mid to low thoracic spine. Patient also has paraspinous muscle tenderness in the thoracic area. Remainder the spine had no point tenderness. Patient also has some lateral left rib tenderness. Abdomen soft nontender. Vital signs are normal. Differential diagnosis includes vertebral fracture, intervertebral discs disease, facet arthropathy, strain, rib fracture, contusion. X-rays of the thoracic spine did not note any acute fracture. Patient did have some degenerative changes in the spine. X-rays of the ribs did not note any fractures. Reviewed exam with patient with recommendations for treatment follow-up with primary care. Patient reported understanding agreed to plan. Discharge Plan Discharge Patient Disposition: Home Clinical Impression: Fall from slipping Qualifiers: Encounter type: initial encounter Qualified Code(s): W01.0XXA - Fall on same level from slipping, tripping and stumbling without subsequent striking against object, initial encounter Thoracic back pain Qualifiers: Chronicity: acute Back pain laterality: midline Qualified Code(s): M54.6 - Pain in thoracic spine Condition: Stable Prescriptions: New diclofenac sodium 75 mg tablet,delayed release (DR/EC) 75 mg PO BID Qty: 20 0RF hydrocodone-acetaminophen 5-325 mg tablet 1 tab PO Q8H PRN (Reason: pain (scale score 7-10)) Qty: 10 0RF No Action Trelegy Ellipta 100-62.5-25 mcg blister with device 1 inh inhalation DAILY 30 Days Qty: 60 4RF albuterol sulfate 90 mcg/actuation HFA aerosol inhaler 2 puff INHALATION Q4H PRN (Reason: shortness of breath or wheezing) Qty: 8.5 6RF Rx Instructions: 340 B epinephrine [EpiPen 2-Zeyad] 0.3 mg/0.3 mL auto-injector 0.3 mg IM Q15M PRN (Reason: anaphylaxis) Qty: 2 1RF Rx Instructions: do not exceed 3 doses per episode 340 B buspirone 5 mg tablet 5 mg PO TID Qty: 90 2RF doxycycline hyclate 100 mg tablet 100 mg PO BID 14 Days Qty: 28 0RF Excedrin Migraine 250-250-65 mg Tablet 4 - 10 tab PO PRN Discharge Orders: Discharge ED (Routine); Ordered 06/19/22 Ordered By: Henry Rhodes Patient Instructions: Back Pain (ED), Opioid Safety Activity Restrictions/Additional Instructions: Activity as tolerated. Gentle stretching and range of motion exercises. Ice and heat for further pain relief. Use acetaminophen to help control pain. Take diclofenac 75 mg 1 tablet 2 times a day routinely for pain and inflammation. Do not take diclofenac with ibuprofen or naproxen. Use hydrocodone for severe pain. Follow-up with primary care in 3 days for recheck and further treatment. Return to ED for new concerns. 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
--- NOTE | 2022-06-19 15:08 | XRR_ITS ---
PROCEDURE INFORMATION: Exam: XR Thoracic Spine Exam date and time: 06/19/2022 3:35 PM Age: 36 years old Clinical indication: Injury or trauma; Fall; Blunt trauma (contusions or hematomas); Additional info: Fall injury TECHNIQUE: Imaging protocol: Radiologic exam of the thoracic spine. Views: 3 views. COMPARISON: CR XR chest 1V portable [id number] 10/25/2021 2:37 PM FINDINGS: Bones/joints: Normal. No acute fracture. Normal alignment. Soft tissues: Unremarkable. XR/XR thoracic spine 3V* [id number] IMPRESSION: No acute findings.
--- NOTE | 2022-06-19 15:08 | XRR_ITS ---
PROCEDURE INFORMATION: Exam: XR Left Ribs with PA Chest Exam date and time: 06/19/2022 3:42 PM Age: 36 years old Clinical indication: Injury or trauma; Fall; Rib area, left side; Blunt trauma; Additional info: Fall injury, include 1 view chest TECHNIQUE: Imaging protocol: Radiologic exam of the Left ribs with PA chest. Views: 3 views COMPARISON: CR XR chest 1V portable [id number] 10/25/2021 2:37 PM FINDINGS: Lungs: Unremarkable. No consolidation. Pleural spaces: Unremarkable. No pleural effusion. No pneumothorax. Heart/Mediastinum: Unremarkable. No cardiomegaly. Bones/joints: Unremarkable. XR/XR ribs LT mn 3V w CXR1V [id number] IMPRESSION: No acute findings.
[2022-06-19] MEDS: ketorolac 30 mg/mL INJ IM (15:24)
[2022-06-19] MEDS: HYDROcodone-acetaminophen 7.5-325 mg Tablet 1 TAB PO (15:24)
== END 2022-06-19 16:24 | disposition home or self-care (01) ==
PROVIDERS: Emergency Provider Nurse Practitioner Family
DX: M54.6 Pain in thoracic spine (principal); W01.0XXA Fall on same level from slipping, tripping and stumbling without subsequent striking against object, initial encounter; F17.210 Nicotine dependence, cigarettes, uncomplicated
CPT/HCPCS: 71101; 72072; 96372; 99284; J1885

== ENCOUNTER → 2022-07-14 11:07 | Outpatient (BNVA) | payer SELFPAY | PROVIDERS: Referring Provider Family Medicine; Visit Provider Physician Assistant | DX: M41.9 Scoliosis, unspecified (principal) | CPT/HCPCS: 72072 ==

== ENCOUNTER → 2023-04-13 11:07 | Outpatient (BNVA) | payer SELFPAY | PROVIDERS: PCP Family Medicine; Visit Provider Family Medicine | DX: R59.0 Localized enlarged lymph nodes (principal); W57.XXXA Bitten or stung by nonvenomous insect and other nonvenomous arthropods, initial encounter; M25.50 Pain in unspecified joint; Z13.6 Encounter for screening for cardiovascular disorders; Z13.220 Encounter for screening for lipoid disorders; F41.1 Generalized anxiety disorder; F41.0 Panic disorder [episodic paroxysmal anxiety]; S80.861A Insect bite (nonvenomous), right lower leg, initial encounter | CPT/HCPCS: 80053; 85025; 86140 ==

== ENCOUNTER → 2023-08-14 15:54 | Outpatient (BNVA) | payer SELFPAY | PROVIDERS: PCP Family Medicine; Visit Provider Family Medicine | DX: R59.0 Localized enlarged lymph nodes (principal); R30.0 Dysuria; Z13.220 Encounter for screening for lipoid disorders; Z13.6 Encounter for screening for cardiovascular disorders; M25.50 Pain in unspecified joint; F41.1 Generalized anxiety disorder; F41.0 Panic disorder [episodic paroxysmal anxiety] | CPT/HCPCS: 80053; 80061; 81000; 84443; 85025; 87086 ==

== ENCOUNTER 2023-10-07 14:37 | Emergency (ER) | payer OTHER, SELFPAY ==
[2023-10-07 14:46] VITALS: BP 159/101; PULSE 108; RESP 17; TEMP 36.8; O2SAT 98; BMI 42.5
--- NOTE | 2023-10-07 15:11 | CTR_ITS ---
PROCEDURE INFORMATION: Exam: CT Abdomen And Pelvis With Contrast Exam date and time: 10/07/2023 3:25 PM Age: 37 years old Clinical indication: Pain; Other: Suprapubic; Additional info: Suprapubic pain, mass TECHNIQUE: Imaging protocol: Computed tomography of the abdomen and pelvis with contrast. Radiation optimization: All CT scans at this facility use at least one of these dose optimization techniques: automated exposure control; mA and/or kV adjustment per patient size (includes targeted exams where dose is matched to clinical indication); or iterative reconstruction. Contrast material: OMNI 350; Contrast volume: 100 ml; Contrast route: INTRAVENOUS (IV); COMPARISON: CT abdomen pelvis w con* [id number] 01/14/2021 11:44 AM RADIATION DOSE METRICS: Total DLP (mGy-cm): 1153.52 FINDINGS: Diaphragm: Small hiatal hernia. Liver: Normal. No mass. Gallbladder and bile ducts: There has been a cholecystectomy. Pancreas: Normal. No ductal dilation. Spleen: Normal. No splenomegaly. Adrenal glands: Normal. No mass. Kidneys and ureters: Normal. No hydronephrosis. Stomach and bowel: No mechanical bowel obstruction. The bowel is nondilated. Scattered colonic diverticula without any evidence of acute diverticulitis. Appendix: There has been an appendectomy. Intraperitoneal space: Unremarkable. No free air. No significant fluid collection. Vasculature: Unremarkable. No abdominal aortic aneurysm. Lymph nodes: Prominent right lower quadrant lymph nodes. Urinary bladder: The bladder is collapsed, unable to evaluate its lumen. There is somewhat irregular thickening at the dome of the bladder near urachus, and it may represent an urachus cyst. , similar findings were seen on 12/07/2020. Reproductive: Prostate measures 4 centimeters. Bones/joints: Unremarkable. No acute fracture. Soft tissues: Unremarkable. CT/CT abdomen pelvis w con* [id number] IMPRESSION: 1. Bladder wall thickening at the dome of the bladder, along the urachus remnant which may reflect an urachal cyst versus a collapsed bladder. Similar findings were observed on 12/07/2020. Further evaluation with a nonemergent ultrasound may be obtained to help elucidate this further. 2. Prominent right lower quadrant lymph nodes. 3. Diverticulosis without any evidence of acute diverticulitis.
[2023-10-07 15:28] LABS: Add Urine Microscopic? NO; Charge for UA Resulting for Rev
[2023-10-07 15:28] LABS: Basophils # 0.1 10^3/uL (0.0-0.1); Basophils % 0.7 %; Eosinophils # 0.4 10^3/uL (0.0-0.8); Eosinophils % 3.5 %; Hematocrit 50.1 % (37-53); Lymphocytes # 4.2 10^3/uL (0.8-4.8); Lymphocytes % 41.6 %; Mean Corpuscular HGB Conc 33.7 g/dL (30-55); Mean Corpuscular Hemoglobin 29.4 pg (27-33); Mean Corpuscular Volume 87.3 fl (82-101); Mean Platelet Volume 8.5 fL (7.4-10.4); Monocytes # 0.5 10^3/uL (0.2-0.9); Monocytes % 4.7 %; Neutrophils # 4.99 10^3/uL (1.8-7.7); Neutrophils % 49.2 %; Nucleated Red Blood Cells % 0 %; Platelet Count 338 10^3/cmm (157-399); Red Blood Count 5.74 10^6/uL (3.85-5.65); Red Cell Distribution Width 13.7 % (12.1-15.1); White Blood Count 10.15 10^3/uL (3.29-11.43)
[2023-10-07 15:30] LABS: Bilirubin Urine Neg (Negative); Blood Urine Neg (Negative); Glucose Urine UA Norm (Normal); Ketones Urine Negative (Negative); Leukocyte Esterase Urine Negative (Negative); Nitrate Urine Negative (Negative); Protein Urine Neg (Negative); Urine Appearance Clear (CLEAR); Urine Color Yellow (Yellow); Urobilinogen Urine 1 mg/dL (Negative); pH Urine 5 (5-7)
[2023-10-07 15:45] LABS: Alanine Aminotransferase 28 U/L (0-41); Albumin Level 4.3 g/dL (3.5-5.2); Alkaline Phosphatase 87 U/L (40-130); Anion Gap 15.9 (5-19); Aspartate Amino Transferase 22 U/L (0-40); Blood Urea Nitrogen 6 mg/dL (6-20); Calcium 9.1 mg/dL (8.5-10.5); Carbon Dioxide 25 mmol/L (22-29); Chloride 104 mmol/L (98-107); Globulin 2.8 g/dL (1.3-4.6); Glomerular Filtration Rate 94.4 mL/min (90-130); Glucose 93 mg/dL (65-115); Osmolality Calculated 289 mOsm/kg (285-295); Potassium 3.9 mmol/L (3.5-5.1); Sodium 141 mmol/L (136-145); Total Bilirubin 0.2 mg/dL (0.15-1.2); Total Protein 7.1 g/dL (6.6-8.7)
--- NOTE | 2023-10-07 17:03 | ED_ITS ---
HPI - Abdominal Pain 2 General: Chief Complaint: Abdominal Pain Stated Complaint: abd pain / pelvic pain Time Seen by Provider: 10/07/23 14:57 History of Present Illness: This patient is a 37-year-old white male who presents to the ER concerned about a pea-sized tender mass just over the symphysis pubis. Patient states he has noticed this for 1 month now. He feels like it is getting larger. He was told that it may be a lymph node. He has not had any dysuria or hematuria. Has not had any nausea, vomiting, constipation or diarrhea. No testicular pain. Review of Systems 2 General: Reports: 10 or more systems reviewed and unremarkable except in HPI and below : Reports: other (Painful lump above the symphysis pubis) PFSH ED 2 PFSH: Medical History URI with cough and congestion Allergic rhinitis due to allergen Diverticulosis Asthma Chronic low back pain Surgical History Anal warts Excision x 1 Status post laparoscopic cholecystectomy (05/13/20) H/O circumcision Family History Mother Cancer lung Father Cancer lung, colon Family/Other Cancer cousin, thyroid cancer Other CAD (coronary artery disease) Chronic kidney disease (CKD) Diabetes Denies family history of Anesthesia complication Bleeding disorder Social History Smoking and tobacco/nicotine status: current every day tobacco/nicotine user cigarettes Packs smoked per day: 1 Years cigarettes smoked: 10 Second hand smoke exposure: Yes Alcohol intake: never Substance/Drug Use: never Lives independently: Yes Household members: none Marital status: Single Current occupational status: employed Current gender identity: Male Physical Exam 2 Const: COMMON NORMALS: no acute distress, patient oriented x3 and no limitations GENERAL APPEARANCE: cooperative and comfortable HENMT: COMMON NORMALS: normocephalic, atraumatic, Normal nasal mucous membranes and turbinates present, moist oral mucous membranes and oropharynx normal HEAD & SCALP: normal to inspection, normocephalic and atraumatic F JOURDAN & SINUS: normal facial exam NOSE: Normal nasal mucous membranes and turbinates present Eye: COMMON NORMALS: Equal, round and reactive pupils present, EOMs intact bilaterally and conjunctivae normal GENERAL EYE: appearance normal, both eyes and all related structures CONJUNCTIVA: Yes conjunctivae normal PUPIL: Yes Equal, round and reactive pupils present Neck/C-Spine: COMMON NORMALS: supple and no JVD Chest: COMMONS NORMALS: normal inspection of the chest Resp: COMMON NORMALS: normal respiratory effort and clear to auscultation bilaterally AUSCULTATION: clear to auscultation bilaterally Cardio: COMMON NORMALS: no JVD, regular rate, regular rhythm, No gallops present (Cardio), No murmurs present (Cardio) and No rub (Cardio) RATE: r egular rate RHYTHM: regular rhythm GI: COMMON NORMALS: Normal to inspection, nondistended, normoactive bowel sounds present, Soft to palpation and non-tender AUSCULTATION: Yes normoactive bowel sounds PALPATION: Yes Soft to palpation : COMMON NORMALS: Yes no CVA tenderness BLADDER/KIDNEY EXAM: Yes no CVA tenderness OTHER: There was a tiny mass in the area of the symphysis pubis approximately 2 to 3 mm in diameter likely consistent with a lymph node. Back/Pelvis: COMMON NORMALS: no CVA tenderness and thoracic and lumbar spine normal to inspection Extremity: COMMON NORMALS: normal to inspection Neuro: COMMON NORMALS: patient oriented x3 and CN's II-XII intact bilaterally Psych: COMMON NORMALS: mental status grossly normal, Normal thought process present and cooperative THOUGHT PROCESS: Normal thought process present Skin: COMMON NORMALS: no rashes or lesions noted, turgor normal and no jaundice GENERAL SKIN EXAM: no rashes or lesions noted and turgor normal Course 2 Vital Signs: Vital signs: Vital Signs Temperature 98.2 F 10/07/23 14:46 Pulse Rate 108 H 10/07/23 14:46 Respiratory Rate 17 10/07/23 14:46 Blood Pressure 159/101 10/07/23 14:46 Pulse Oximetry 98 10/07/23 14:46 Oxygen Delivery Me thod Room Air 10/07/23 14:46 MDM - Abdominal Pain Medical Decision Making Patient was concerned about cancer. States he had been waiting on getting a CT scan of the abdomen pelvis with IV contrast. We did go ahead and complete that today and that was read by the radiologist as a possible urachal cyst with some notable right lower quadrant lymph nodes. CBC, CMP and urinalysis were all normal. Recommended patient follow-up with his primary care physician with referral to urology for further recommendations. He was discharged in stable condition. Lab Data 10/07/23 15:18 10/07/23 15:18 Labs/Radiology: Radiology Impressions Abdomen/Pelvis CT 10/07/23 15:11 IMPRESSION: 1. Bladder wall thickening at the dome of the bladder, along the urachus remnant which may reflect an urachal cyst versus a collapsed bladder. Similar findings were observed on 12/07/2020. Further evaluation with a nonemergent ultrasound may be obtained to help elucidate this further. 2. Prominent right lower quadrant lymph nodes. 3. Diverticulosis without any evidence of acute diverticulitis. Laboratory Results WBC 10.15 10^3/uL (3.29-11.43) 10/07/23 15:18 RBC 5.74 10^6/uL (3.85-5.65) H 10/07/23 15:18 Hgb 16.90 g/dL (11.27-16.99) 10/07/23 15:18 Hct 50.1 % (37-53) 10/07/23 15:18 MCV 87.3 fl (82-101) 10/07/23 15:18 MCH 29.4 pg (27-33) 10/07/23 15:18 MCHC 33.7 g/dL (30-55) 10/07/23 15:18 RDW 13.7 % (12.1-15.1) 10/07/23 15:18 Plt Count 338 10^3/cmm (157-399) 10/07/23 15:18 MPV 8.5 fL (7.4-10.4) 10/07/23 15:18 Neut % (Auto) 49.2 % 10/07/23 15:18 Lymph % (Auto) 41.6 % 10/07/23 15:18 [place] % (Auto) 4.7 % 10/07/23 15:18 Eos % (Auto) 3.5 % 10/07/23 15:18 Baso % (Auto) 0.7 % 10/07/23 15:18 Neut # (Auto) 4.99 10^3/uL (1.8-7.7) 10/07/23 15:18 Lymph # (Auto) 4.2 10^3/uL (0.8-4.8) 10/07/23 15:18 [place] # (Auto) 0.5 10^3/uL (0.2-0.9) 10/07/23 15:18 Eos # (Auto) 0.4 10^3/uL (0.0-0.8) 10/07/23 15:18 Baso # (Auto) 0.1 10^3/uL (0.0-0.1) 10/07/23 15:18 Nucleated RBC % (auto) 0 % 10/07/23 15:18 Nucleated RBCs # 0.0 /100WBC 10/07/23 15:18 Sodium 141 mmol/L (136-145) 10/07/23 15:18 Potassium 3.9 mmol/L (3.5-5.1) 10/07/23 15:18 Chloride 104 mmol/L (98-107) 10/07/23 15:18 Carbon Dioxide 25 mmol/L (22-29) 10/07/23 15:18 Anion Gap 15.9 (5-19) 10/07/23 15:18 BUN 6 mg/dL (6-20) 10/07/23 15:18 Creatinine 0.9 mg/dL (0.7-1.2) 10/07/23 15:18 GFR Calculation 94.4 mL/min (90-130) 10/07/23 15:18 Glucose 93 mg/dL (65-115) 10/07/23 15:18 Calculated Osmolality 289 mOsm/kg (285-295) 10/07/23 15:18 Calcium 9.1 mg/dL (8.5-10.5) 10/07/23 15:18 Total Bilirubin 0.2 mg/dL (0.15-1.2) 10/07/23 15:18 AST 22 U/L (0-40) 10/07/23 15:18 ALT 28 U/L (0-41) 10/07/23 15:18 Alkaline Phosphatase 87 U/L (40-130) 10/07/23 15:18 Total Protein 7.1 g/dL (6.6-8.7) 10/07/23 15:18 Albumin 4.3 g/dL (3.5-5.2) 10/07/23 15:18 Globulin 2.8 g/dL (1.3-4.6) 10/07/23 15:18 Urine Color Yellow (Yellow) 10/07/23 15:20 Urine Appearance Clear (CLEAR) 10/07/23 15:20 Urine pH 5 (5-7) 10/07/23 15:20 Ur Specific [place] 1.020 (1.005-1.030) 10/07/23 15:20 Urine Protein Neg (Negative) 10/07/23 15:20 Urine Glucose (UA) Norm (Normal) 10/07/23 15:20 Urine Ketones Negative (Negative) 10/07/23 15:20 Urine Blood Neg (Negative) 10/07/23 15:20 Urine Nitrate Negative (Negative) 10/07/23 15:20 Urine Bilirubin Neg (Negative) 10/07/23 15:20 Urine Urobilinogen 1 mg/dL (Negative) H 10/07/23 15:20 Ur Leukocyte Esterase Negative (Negative) 10/07/23 15:20 All radiology interpretation(s) finalized by discharge Discharge Plan Discharge Patient Disposition: Home Clinical Impression: Urachal cyst, Lymphadenopathy Condition: Stable Prescriptions: No Action Trelegy Ellipta 100-62.5-25 mcg blister with device 1 inh inhalation DAILY 30 Days Qty: 60 4RF albuterol sulfate 90 mcg/actuation HFA aerosol inhaler 2 puff INHALATION Q4H PRN (Reason: shortness of breath or wheezing) Qty: 8.5 6RF Rx Instructions: 340 B doxycycline hyclate 100 mg tablet 100 mg PO BID 14 Days Qty: 28 0RF buspirone 15 mg tablet 15 mg PO TID PRN (Reason: anxiety) 30 Days Qty: 90 5RF loratadine 10 mg tablet 10 mg PO BID Qty: 30 0RF epinephrine [EpiPen 2-Zeyad] 0.3 mg/0.3 mL auto-injector 0.3 mg IM Q15M PRN (Reason: anaphylaxis) Qty: 2 1RF Rx Instructions: do not exceed 3 doses per episode 340 B Discharge Orders: Discharge ED (Routine); Ordered 10/07/23 Ordered By: Herbie Parada Referrals: Diogo Frank DO [Primary Care Provider] - Patient Instructions: Pain Management Coding Level of Care Code 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
== END 2023-10-07 17:25 | disposition home or self-care (01) ==
PROVIDERS: Emergency Provider Emergency Medicine; PCP Family Medicine
DX: Q64.4 Malformation of urachus (principal); R59.1 Generalized enlarged lymph nodes; F17.210 Nicotine dependence, cigarettes, uncomplicated
CPT/HCPCS: 74177; 80053; 81003; 85025; 99284; Q9967

== ENCOUNTER 2023-10-20 13:37 | Outpatient (CLI) | payer OTHER, SELFPAY ==
[2023-10-20 14:28] LABS: Lactate Dehydrogenase 284 U/L (135-225)
[2023-10-20 14:51] LABS: HIV 1 & 2 Antibody Non-Reactive (Non-Reactiv); HIV 1 & 2 Antigen Non-Reactive (Non-Reactiv)
[2023-10-20 14:53] LABS: Hepatitis B Surface AB 340.3 (11.5-1000); Hepatitis C Virus Antibody Non-Reactive (Nonreactive)
[2023-10-21 10:19] LABS: Chlamydia Trachomatis RNA TMA NOT DETECTED (NOT DETECTED); Neisseria Gonorrhoeae RNA, TMA NOT DETECTED (NOT DETECTED); Trichomonas Vaginalis RNA NOT DETECTED (NOT DETECTED)
[2023-10-23 12:15] LABS: EBV IGM TEST <36.00 U/mL; EBV Nuclear AG <18.00 U/mL
[2023-10-23 12:39] LABS: Cytomegalovirus Antibody (IGG) <0.60 U/mL; Cytomegalovirus Antibody (IGM) <30.00 AU/mL
[2023-10-23 12:50] LABS: Toxoplasma AB IGG <7.20 IU/mL; Toxoplasma AB IGM <8.00 AU/mL
[2023-10-23 13:58] LABS: RPR w(Moniotor) w/REFL Titer NON-REACTIVE (NON-REACTIVE)
[2023-10-24 11:40] LABS: Quantiferon Mitogen 8.22 IU/mL; Quantiferon Nil 0.04 IU/mL; Quantiferon Plus TB1 0.04 IU/mL; Quantiferon Plus TB2 0.03 IU/mL; Quantiferon TB Gold NEGATIVE (NEGATIVE)
[2023-10-24 17:54] LABS: Bartonella Henselae IgG AB Negative
[2023-10-25 20:39] LABS: Brucella AB Agglutination <1:80 titer
[2023-10-26 20:05] LABS: Coccidioides AB CF Serum <1:2; Histoplasma capsulatum H Ab NEGATIVE; Histoplasma capsulatum M Ab NEGATIVE
== END 2023-10-20 13:38 | disposition home or self-care (01) ==
LOC: LAB 13:37
PROVIDERS: PCP Family Medicine; Visit Provider Family Medicine
DX: R59.0 Localized enlarged lymph nodes (principal)
CPT/HCPCS: 36415; 83615; 86480; 86592; 86611; 86622; 86635; 86664; 86665; 86698; 86706; 86777; 86803; 87491; 87591; 87806

== ENCOUNTER 2023-10-27 10:37 | Outpatient (CLI) | payer OTHER, SELFPAY | END 2023-10-27 10:38 | disposition home or self-care (01) | LOC: LAB 10:37 | PROVIDERS: PCP Family Medicine; Visit Provider Surgery | DX: R59.0 Localized enlarged lymph nodes; R19.7 Diarrhea, unspecified | CPT/HCPCS: 82274; 83630; 83993 ==

== ENCOUNTER 2023-11-01 07:59 | Outpatient (CLI) | payer OTHER, SELFPAY ==
--- NOTE | 2023-11-01 08:15 | US_ITS ---
WS: [id number] INDICATION: Palpable lymph nodes TECHNIQUE: Ultrasound of the posterior neck area of palpable concern. FINDINGS: Slightly prominent lymph nodes in the area of palpable concern some with cortical thickenin g. Some lymph nodes demonstrate partial replacement of the fatty hilum. Largest lymph nodes measure u p to 2 cm. A few additional prominent but normal-appearing lymph nodes in the submandibular spaces. Palpable area in the posterior neck demonstrates a prominent lymph node with partial replacement of f atty hilum measuring 1.1 x 0.4 cm. Prominent lymph nodes in the RIGHT cervical chain with cortical th ickening and partial replacement of fatty hilum measuring the largest measuring up to 1.2 cm. Lymph n odes are indeterminate and recommend further evaluation with contrast-enhanced neck CT for better yaya tomic detail. IMPRESSION: Recommend further evaluation with contrast-enhanced CT neck for better anatomic detail of the enlarged lymph nodes some with a suspicious appearance
== END 2023-11-01 08:00 | disposition home or self-care (01) ==
LOC: RAD 08:00
PROVIDERS: PCP Family Medicine; Visit Provider Surgery
DX: R59.1 Generalized enlarged lymph nodes (principal); R59.0 Localized enlarged lymph nodes
CPT/HCPCS: 76536

== ENCOUNTER 2023-11-22 15:49 | Outpatient (CLI) | payer OTHER, SELFPAY ==
[2023-11-22] MEDS: iohexol 350 mg/mL 500 mL Btl (per mL) IV (16:09)
--- NOTE | 2023-11-22 16:30 | CT_ITS ---
WS: [id number] CT NECK TECHNIQUE: Contrast-enhanced CT of the neck with coronal and sagittal reformatted images. CLINICAL INFORMATION: R59.0 - Localized enlarged lymph nodes COMPARISON: None. DLP: 231.[address] scans at [facility] use at least one of these dose optimization techniques: automated e xposure control; mA and/or kV adjustment per patient size (includes targeted exams where dose is matc hed to clinical indication); or iterative reconstruction. FINDINGS: Palpable marker overlying the RIGHT submandibular gland. A few prominent submandibular lymph nodes bi laterally nonspecific but likely reactive. No cystic or solid mass deep the palpable marker. Addition al palpable marker RIGHT posterior neck. Deep to the palpable marker is a prominent lymph node measur ing 10 mm. Slight surrounding induration. Additional slightly enlarged lymph nodes in both upper cerv ical chains, LEFT greater than RIGHT submandibular space, and posterior triangle LEFT greater than RI GHT. These are nonspecific but most likely reactive. Largest lymph nodes measure 9 mm in short axis d imension. Paranasal sinuses and mastoid air cells are well aerated. Mild mucosal thickening in the paranasal si nuses. Parotid glands are normal. Normal submandibular glands. Normal posterior nasopharynx. Normal p arapharyngeal fat. No evidence of supraglottic or glottic mass. Normal subglottic airway. Lung apices are well aerated. Straightening of the normal cervical lordosis. Mild spondylitic changes. Disc osteophyte complex C6-7 . IMPRESSION: 1. Deep to the palpable marker RIGHT posterior neck is a prominent lymph node measuring 10 mm with s light surrounding induration. 2. Deep to the palpable marker overlying the RIGHT submandibular gland is normal-appearing submandib ular gland with a few normal sized RIGHT submandibular lymph nodes. 3. Mild bilateral cervical lymphadenopathy involving the upper cervical chains and posterior triangl e LEFT greater than RIGHT. These are nonspecific but most likely reactive. Recommend correlation with clinical symptoms and 3-month follow-up contrast-enhanced neck CT to confirm stability or resolution .
== END 2023-11-22 15:50 | disposition home or self-care (01) ==
LOC: RAD 15:50
PROVIDERS: PCP Family Medicine; Visit Provider Surgery
DX: R59.0 Localized enlarged lymph nodes (principal)
CPT/HCPCS: 70491; Q9967

== ENCOUNTER 2023-12-18 09:25 | Day surgery (SDC) | payer OTHER, SELFPAY ==
[2023-12-18] VITALS (12 sets, daily range): BP systolic 115–154; BP diastolic 82–106; PULSE 80–106; RESP 18–28; TEMP 36.1–36.5; O2SAT 91–100; BMI 46.0
[2023-12-18] MEDS: sodium chloride 0.9% 1,000 ML 30 ML IV (09:57)
--- NOTE | 2023-12-18 10:51 | ANES.PREANE2 ---
Pre-Anesthetic Assessment Height/Weight: Height 1.6 m Weight 117.934 kg Temp Pulse Resp BP Pulse Ox O2 Del Method 97 F L 87 18 144/89 99 Room Air 12/18/23 09:51 12/18/23 09:51 12/18/23 09:51 12/18/23 09:51 12/18/23 09:51 12/18/23 10:01 Preop Diagnosis: Right posterior triangle neck mass Operation Date: 12/18/23 11:00 Proposed Procedures p Excision Neck Mass/Lesion/right posterior neck mass and lymph nodes(Right) - Anirudh Egan MD Familial anesthetic complications: None Was Beta Ishmael taken within 24 hours: N/A Was Clonidine taken within 24 hours: N/A Last intake: Intake Last Liquid Date 12/17/23 Last Liquid Time 21:00 Last Solid Date 12/17/23 Last Solid Time 21:00 Social Tobacco and No alcohol Exam alert, oriented x 3, clear to auscultation bilaterally and regular rate & rhythm Airway Mallampati: Class III Dentition: full Metabolic Morbid Obesity Anesthetic Plan ASA status: 2 Anesthesia: General Risk of > 500 ml blood loss (7ml/kg in children): No Medications/Allergies Home Medications Medication Instructions Recorded Confirmed Last Taken Type buspirone 15 mg tablet 15 mg PO TID PRN anxiety 30 days 08/29/23 12/15/23 12/18/23 06:30 Rx #90 tabs meloxicam 15 mg tablet 15 mg PO DAILY #30 tabs 12/05/23 12/15/23 12/15/23 Rx tramadol 50 mg tablet 50 mg PO Q8H PRN pain #90 tabs 12/05/23 12/15/23 12/18/23 06:30 Rx Allergies Allergy/AdvReac Type Severity Reaction Status Date / Time coconut Allergy Severe ALGY-Swell Verified 12/15/23 12:18 Lip/Tongue/Throat sulfamethoxazole AdvReac Mild Unknown Verified 12/15/23 12:18 [From Bactrim] trimethoprim [From Bactrim] AdvReac Mild Unknown Verified 12/15/23 12:18 Current Medications Generic Name Dose Route Start Last Admin Trade Name Freq PRN Reason Stop Dose Admin Sodium Chloride 1,000 mls @ 30 mls/hr 12/18/23 09:30 12/18/23 09:57 Sodium Chloride 0.9% IV 12/19/23 09:29 30 mls/hr .Q24H PRIYANKA Administration PFSH Anesthesia Medical History URI with cough and congestion Allergic rhinitis due to allergen Diverticulosis Asthma Chronic low back pain Surgical History Hx of colonoscopy with polypectomy total of 3 Hx of appendectomy Anal warts Excision x 1 Status post laparoscopic cholecystectomy (05/13/20) H/O circumcision Family History Mother Cancer lung Father Cancer lung, colon Family/Other Cancer cousin, thyroid cancer Other CAD (coronary artery disease) Chronic kidney disease (CKD) Diabetes Denies family history of Anesthesia complication Bleeding disorder Social History Smoking and tobacco/nicotine status: current every day tobacco/nicotine user cigarettes Packs smoked per day: 0.5 Years cigarettes smoked: 5 Second hand smoke exposure: Yes Alcohol intake: never Substance/Drug Use: never Lives independently: Yes Household members: none Marital status: Single Current occupational status: employed Current gender identity: Male Data Anesthesia Cardiac Studies: No Data to Display
[2023-12-18] MEDS: ceFAZolin 2,000 MG in sodium chloride 0.9% (plus) 50 ML 100 MG IV (12:29)
--- NOTE | 2023-12-18 12:58 | W.PM.OPSUD ---
Surgery/Procedure H&P Update DATE OF PROCEDURE: December 18, 2023 DATE H&P PERFORMED: 11/30/23 H&P UPDATE INFORMATION: I have reviewed H&P completed within last 30 days, I have examined patient prior to procedure and No changes to prior documentation CHANGES TO PREVIOUS DOCUMENTATION: No changes PREOP DIAGNOSIS: Right posterior triangle neck mass PRIMARY INDICATION FOR PROCEDURE: Right posterior triangle neck mass PLANNED PROCEDURE: Operation Date: 12/18/23 11:00 Proposed Procedures p Excision Neck Mass/Lesion/right posterior neck mass and lymph nodes(Right) - Anirudh Egan MD
[2023-12-18] MEDS: lidocaine-epi 2% 1.7mL Cartridge (OR Only) 5.1 ML XX (13:00)
[2023-12-18] MEDS: neomycin-poly-bacitracin oint 28 gm 1 APPLIC TOPICAL (13:26)
--- NOTE | 2023-12-18 13:28 | PM.OP ---
Operative Report Date of procedure: December 18, 2023 Pre-op diagnosis: Right posterior triangle neck mass Post-op diagnosis: Same Post-op findings: Multiple lymph nodes right posterior neck Procedure done: Excision of multiple lymph nodes from right posterior neck Implants: No implants Specimens removed/disposition: Lymph nodes to pathology Pathology: Lymph nodes to pathology Surgeon: Anirudh Egan MD Anesthesia: General and Local Estimated blood loss: 5 mL Complications: No complications encountered Findings: Patient had overlapping lymph nodes over lying the lesser occipital nerve on the right side. Brief History: 38-year-old male patient complaining of a mass in the right posterior neck aspect that was causing unusual pain. Especially with palpation. On exam it appeared as if he had lymph nodes overlying the lesser occipital nerve. He is therefore being brought to the operating room to undergo excision of this mass. The procedure its risks and complications were explained in detail in the office setting. These risks included bleeding infection numbness scarring swelling bruising and need for additional treatment. Anesthetic risks were discussed and understood. Informed consent was granted and witnessed. Procedure: Description of procedure: The patient was placed on the operating table in the supine position. After general endotracheal tube anesthesia was obtained he was repositioned into a prone position. Patient received IV Ancef for prophylaxis. The patient's sign the site was noted on the right posterior neck. The site was cleansed with alcohol and then a total of 5.1 mL of 2% Xylocaine with 1-100,000 epinephrine was used to infiltrate the skin and subcutaneous tissue and deeper tissues as well. The patient was then prepped with ChloraPrep and then draped appropriately. Timeout was accomplished identifying the patient date of plan procedure allergies fire risk and medications given. With all in agreement the procedure continued. A marking pen was used to outline a vertical incision overlying the mass. Because of the patient's thickness of skin and adipose tissue it was necessary to create an incision approximately 4 centimeters in length. The incision was created with a 15 blade carrying it down through the subcutaneous fat. Bipolar cautery was used to control bleeding. Then careful dissection was carried down through the tissue deep to the subcutaneous fat and overlying the deeper musculature and the lesser occipital nerve. Overlying that was 2 lymph nodes overlapping each other and approximately 1 cm in diameter as a bulk. This was sent to pathology for permanent section. The area was irrigated with saline and then dried. No active bleeding was encountered. The depth of the wound was closed with interrupted 4-0 chromic suture. Then the subcutaneous layer was closed with interrupted 4-0 chromic suture. Then the skin was closed with fabiola. Neosporin ointment was applied after cleansing and then OpSite was applied over that. The patient tolerated the procedure well and the drapes were removed. He was returned to anesthesia for wake-up and extubation. The patient was then taken to the recovery room in stable condition. Estimated blood loss for the procedure was 5 mL or less.
[2023-12-18] MEDS: labetalol 5 mg/mL SDV 20mL IVP (14:12)
[2023-12-18] MEDS: ondansetron 2 mg/ML SDV 2 mL 4 MG IVP (14:34)
--- NOTE | 2023-12-18 14:39 | PC.NURSE ---
1434 - Phase 2 temp at 97.0 - Dr Hunter notified
--- NOTE | 2023-12-18 15:32 | ANE.PACU2 ---
Inpatient post-anesthesia follow up: Airway intact: Yes Vital signs: Temperature 97 F Pulse Rate 80 Respiratory Rate 18 Blood Pressure 129/82 Pulse Oximetry 96 Oxygen Delivery Me thod Room Air Oxygen Flow Rate 8 Fraction of Inspir ed Oxygen Hydration adequate: Yes Nausea and vomiting: No Pain level: 1 Mental status: Baseline
== END 2023-12-18 15:31 | disposition home or self-care (01) ==
PROVIDERS: PCP Family Medicine; Visit Provider Otolaryngology
PROC: (CPT 38510; principal; 2023-12-18 10:50)
DX: R59.9 Enlarged lymph nodes, unspecified (principal); E66.01 Morbid (severe) obesity due to excess calories; Z68.42 Body mass index [BMI] 45.0-49.9, adult; F17.210 Nicotine dependence, cigarettes, uncomplicated
CPT/HCPCS: 38510; 88305; J0330; J0690; J1100; J1885; J2250; J2405; J2704; J3010; J3490; J3535; J7030; J9999

== ENCOUNTER 2023-12-19 06:12 | Day surgery (SDC) | payer OTHER, SELFPAY ==
--- NOTE | 2023-12-19 05:53 | W.PM.OPSFHP ---
Same Day Surgery H&P Indication for Procedure/HPI DATE OF PROCEDURE: December 19, 2023 CHIEF COMPLAINT/INDICATIONFOR SURGICAL PROCEDURE: abdominal pain PREOP DIAGNOSIS: chronic abdominal pain PLANNED PROCEDURE: Operation Date: 12/19/23 07:15 Proposed Procedures p EGD(Not Applicable) - Balbir Mohr MD s Colonoscopy(Not Applicable) - Balbir Mohr MD Medications/Allergies* Allergies/Adverse Reactions Allergy/AdvReac Type Severity Reaction Status Date / Time coconut Allergy Severe ALGY-Swell Verified 12/15/23 12:18 Lip/Tongue/Throat sulfamethoxazole AdvReac Mild Unknown Verified 12/15/23 12:18 [From Bactrim] trimethoprim [From Bactrim] AdvReac Mild Unknown Verified 12/15/23 12:18 Pertinent History/Comorbid Conditions* Medical History (Updated 10/25/23 @ 15:31 by Balbir Mohr MD) URI with cough and congestion Allergic rhinitis due to allergen Diverticulosis Asthma Chronic low back pain Surgical History (Updated 11/30/23 @ 13:06 by Anirudh Egan MD) Hx of colonoscopy with polypectomy total of 3 Hx of appendectomy Anal warts Excision x 1 Status post laparoscopic cholecystectomy (05/13/20) H/O circumcision Family History (Updated 05/05/20 @ 14:33 by Ginna Balderas LPN) Diabetes CAD (coronary artery disease) Chronic kidney disease (CKD) Cancer Mother lung Father lung, colon Family/Other cousin, thyroid cancer Denies family history of Anesthesia complication Bleeding disorder Social History Smoking and tobacco/nicotine status: current every day tobacco/nicotine user cigarettes Packs smoked per day: 0.5 Years cigarettes smoked: 5 Second hand smoke exposure: Yes Alcohol intake: never Substance/Drug Use: never Lives independently: Yes Household members: none Marital status: Single Current occupational status: employed Current gender identity: Male Pertinent Exam Findings alert, oriented x 3, clear to auscultation bilaterally and regular rate & rhythm Recommendations Surgery/Procedure today Coding Level of Care Code Acute Code for Chg Fwd
[2023-12-19 06:30] VITALS: BP 114/90; PULSE 93; RESP 16; TEMP 36.2; O2SAT 96; BMI 46.0
[2023-12-19] MEDS: sodium chloride 0.9% 1,000 ML 30 ML IV (06:39)
--- NOTE | 2023-12-19 07:28 | P.ANESUD_ITS ---
Pre-Anesthetic Update Pre-Anesthetic Assessment: Date of Surgery/Procedure: 12/19/23 Preop Caron gnosis: chronic abdominal pain Proposed Procedure: Operation Date: 12/19/23 07:15 Proposed Procedures p EGD(Not Applicable) - Balbir Mohr MD s Colonoscopy(Not Applicable) - Balbir Mohr MD Any changes to Pre-Anesthetic Assessment?: No Last Intake: Intake Last Liquid Date 12/18/23 Last Liquid Time 17:30 Last Solid Date 12/17/23 Last Solid Time 21:00 Vitals: Temperature 97.2 F L 12/19/23 06:30 Temperature Source Temporal Artery S can 12/19/23 06:30 Pulse Rate 93 12/19/23 06:30 Respiratory Rate 16 12/19/23 06:30 Blood Pressure 114/90 12/19/23 06:30 Blood Pressure Pooja n 98 12/19/23 06:30 Pulse Oximetry 96 12/19/23 06:30 Oxygen Delivery Me thod Room Air 12/19/23 06:30 Exam: Pre-Anes Outpt Exam: alert, oriented x 3, clear to auscultation bilaterally and regular rate & rhythm Other Pertinent Information: Other Pertinent Information: MAC Cardiac Studies: No Data to Display
[2023-12-19 08:09] VITALS: BP 126/68; PULSE 79; RESP 18; O2SAT 96
[2023-12-19 08:19] VITALS: BP 107/65; PULSE 77; RESP 18; O2SAT 98
[2023-12-19 08:29] VITALS: BP 139/93; PULSE 77; RESP 18; O2SAT 98
--- NOTE | 2023-12-19 08:45 | ANE.PACU2 ---
Inpatient post-anesthesia follow up: Airway intact: Yes Vital signs: Temperature 97.2 F Pulse Rate 77 Respiratory Rate 18 Blood Pressure 139/93 Pulse Oximetry 98 Oxygen Delivery Me thod Room Air Oxygen Flow Rate Fraction of Inspir ed Oxygen Hydration adequate: Yes Nausea and vomiting: No Pain level: 1 Mental status: Baseline
== END 2023-12-19 08:46 | disposition home or self-care (01) ==
PROVIDERS: PCP Family Medicine; Visit Provider Surgery
PROC: 0DJ08ZZ Inspection of Upper Intestinal Tract, Via Natural or Artificial Opening Endoscopic (ICD-10-PCS; CPT 43235; principal; 2023-12-19 07:15)
PROC: 0DJD8ZZ Inspection of Lower Intestinal Tract, Via Natural or Artificial Opening Endoscopic (ICD-10-PCS; CPT 45378; 2023-12-19 07:15)
DX: R10.9 Unspecified abdominal pain (principal); G89.29 Other chronic pain; K63.5 Polyp of colon; K57.30 Diverticulosis of large intestine without perforation or abscess without bleeding; K22.70 Barrett's esophagus without dysplasia; K29.70 Gastritis, unspecified, without bleeding; F17.210 Nicotine dependence, cigarettes, uncomplicated
CPT/HCPCS: 43239; 45380; 88305; 88342; J2704; J7030

== ENCOUNTER 2024-01-02 11:29 | Emergency (ER) | payer OTHER, SELFPAY ==
[2024-01-02 11:32] VITALS: BP 90/49; PULSE 92; RESP 16; TEMP 36.5; O2SAT 97
--- NOTE | 2024-01-02 11:54 | ED_ITS ---
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 He states this is a Worker's Comp. injury. He believes his last tetanus was approximately 5 years ago. Onset (ago): hour(s) Extremity Location: Left: hand (index finger) Place: work Patient tetanus UTD: Yes Context: accidental Associated symptoms: Reports no associated symptoms Treatments prior to arrival: bandage Review of Systems 2 Musc: Reports: extremity pain (L index/middle finger); Denies: extremity swelling Neuro: Denies: numbness in extremities or sensory changes PFSH ED 2 PFSH: Medical History URI with cough and congestion Allergic rhinitis due to allergen Diverticulosis Asthma Chronic low back pain Surgical History Hx of lymph node excision Hx of colonoscopy with polypectomy total of 3 Hx of appendectomy Anal warts Excision x 1 Status post laparoscopic cholecystectomy (05/13/20) H/O circumcision Family History Mother Cancer lung Father Cancer lung, colon Family/Other Cancer cousin, thyroid cancer Other CAD (coronary artery disease) Chronic kidney disease (CKD) Diabetes Denies family history of Anesthesia complication Bleeding disorder Social History Smoking and tobacco/nicotine status: current every day tobacco/nicotine user (0.5PPD x30yrs) cigarettes Packs smoked per day: 0.5 Years cigarettes smoked: 5 Second hand smoke exposure: Yes Alcohol intake: never Substance/Drug Use: never Lives independently: Yes Household members: none Marital status: Single Current occupational status: employed Current gender identity: Male Physical Exam 2 Const: COMMON NORMALS: no acute distress, no limitations and well nourished Extremity: COMMON NORMALS: full ROM and capillary refill normal GENERAL: Y es normal exam except as noted LEFT UPPER EXTREMITY: Yes hand & digits Left hand and digits: Yes ROM (normal), Yes neurovascular exam (normal) and Yes tendon exam (normal) Hand Left Back: 1. sliver 1-2mm superficial skin avulsion L middle finger 2. laceration overlying L index finger n ail plate; there does not appear to be any obvious nail bed damage and nail is still well anchored Neuro: COMMON NORMALS: moves all extremities, no focal motor deficits and no sensory deficits noted Skin: NARRATIVE SKIN EXAM: see above Course 2 Vital Signs: Vital signs: Vital Signs Temperature 97.7 F 01/02/24 11:32 Pulse Rate 92 01/02/24 11:32 Respiratory Rate 16 01/02/24 11:32 Blood Pressure 90/49 01/02/24 11:32 Pulse Oximetry 97 01/02/24 11:32 MDM - Wound/Laceration Medical Decision Making Injuries at this time are minimal and superficial and should heal perfectly fine without intervention today. Will place on abx. Tetanus is UTD. No acute imaging needed. He will follow up with Worker's Comp. Differential Diagnosis Likely laceration Medical Records I reviewed the patient's medical records. No radiology studies performed this visit Discharge Plan Discharge Patient Disposition: Home Clinical Impression: Laceration of left index finger with damage to nail Qualifiers: Encounter type: initial encounter Foreign body presence: without foreign body Q ualified Code(s): S61.311A - Laceration without foreign body of left index finger with damage to nail, initial encounter Condition: Stable Prescriptions: New cephalexin 500 mg capsule 500 mg PO Q6H 7 Days Qty: 28 0RF No Action buspirone 15 mg tablet 15 mg PO TID PRN (Reason: anxiety) 30 Days Qty: 90 5RF doxycycline hyclate 100 mg tablet 100 mg PO BID 10 Days Qty: 20 0RF meloxicam 15 mg tablet 15 mg PO DAILY Qty: 30 2RF tramadol 50 mg tablet 50 mg PO Q8H PRN (Reason: pain) Qty: 90 0RF pantoprazole 40 mg tablet,delayed release (DR/EC) 40 mg PO DAILY 42 Days Qty: 60 0RF sucralfate 100 mg/mL suspension 1 g PO BID 28 Days Qty: 560 0RF Discharge Orders: Discharge ED (Routine); Ordered 01/02/24 Ordered By: Aury Telles Referrals: Diogo Frank DO [Primary Care Provider] - Stand Alone Forms: Work/School Release Coding Level of Care Code ED Anthropologist for Angely Sheffield
[2024-01-02 12:15] VITALS: BP 90/49; PULSE 92; RESP 16; TEMP 36.5; O2SAT 97
== END 2024-01-02 12:17 | disposition home or self-care (01) ==
PROVIDERS: Emergency Provider Physician Assistant; PCP Family Medicine
DX: S61.311A Laceration without foreign body of left index finger with damage to nail, initial encounter (principal); F17.210 Nicotine dependence, cigarettes, uncomplicated; W26.0XXA Contact with knife, initial encounter
CPT/HCPCS: 99283

== ENCOUNTER 2025-03-28 14:36 | Outpatient (CLI) | payer OTHER, SELFPAY ==
--- NOTE | 2025-03-28 15:15 | MR_ITS ---
WS: [id number] MRI BRAIN WITHOUT CONTRAST HISTORY: G43.711 - Chronic migraine without aura, intractable, wit... COMPARISON: None available. TECHNIQUE: Diffusion imaging, multiplanar T1, T2 and FLAIR imaging obtained. No evidence for acute infarct or hemorrhage. Nascimento-white matter differentiation is normal. Minimal small vessel changes in the supratentorial white matter. No prior infarct. No hippocampal atrophy. No remote or acute infarcts or volume loss. Ventricles and extra-axial spaces are normal. No inferior displacement of cerebellar tonsils. The sella turcica and pituitary gland are unremarkable. Small lymph node in the superior RIGHT parotid gland. Dural venous sinuses and [place] of [place] demonstrate no abnormality on this unenhanced studies. There is increased fluid around portions of the optic nerve sheath, this is bilateral and most fluid is along the more peripheral optic nerve sheath. There is no flattening of the sclera. No protrusion of the optic disc appreciated. Paranasal sinuses: Clear. Mastoid air cells: Normal. Calvarium and scalp: Intact. MR/MR head wo con* [id number] IMPRESSION: 1. No acute infarct. No hemorrhage. 2. Mild small vessel changes in the supratentorial white matter. 3. Increased fluid around the optic nerve sheaths. This can be noted with idio pathic intracranial hypertension. This can be further evaluated by neurology.
== END 2025-03-28 14:37 | disposition home or self-care (01) ==
LOC: RAD 14:39
PROVIDERS: PCP Family Medicine; Visit Provider Specialist
DX: G43.711 Chronic migraine without aura, intractable, with status migrainosus (principal); R90.82 White matter disease, unspecified; H47.10 Unspecified papilledema; D11.0 Benign neoplasm of parotid gland
CPT/HCPCS: 70551